=== PATIENT | male | born 1940 | race Caucasian/White ===

== ENCOUNTER → 2025-02-14 07:48 | Outpatient (BNVA) | payer MEDICARE, OTHER, SELFPAY | PROVIDERS: Family Provider Family Medicine; Visit Provider Dermatology | DX: S50.912A Unspecified superficial injury of left forearm, initial encounter (principal); L57.8 Other skin changes due to chronic exposure to nonionizing radiation; L82.1 Other seborrheic keratosis; L81.4 Other melanin hyperpigmentation; D69.2 Other nonthrombocytopenic purpura; L57.0 Actinic keratosis; D48.5 Neoplasm of uncertain behavior of skin | CPT/HCPCS: 11102; 17004; 99203 ==

== ENCOUNTER → 2025-03-07 12:51 | Outpatient (BNVA) | payer MEDICARE, OTHER, SELFPAY | PROVIDERS: Family Provider Family Medicine; Visit Provider Dermatology | DX: C44.319 Basal cell carcinoma of skin of other parts of face (principal) | CPT/HCPCS: 12052; 17311 ==

== ENCOUNTER → 2025-03-14 14:47 | Outpatient (BNVA) | payer MEDICARE, OTHER, SELFPAY | PROVIDERS: Family Provider Family Medicine; Visit Provider Dermatology | DX: L81.4 Other melanin hyperpigmentation (principal); L57.0 Actinic keratosis | CPT/HCPCS: 17000; 99212 ==

== ENCOUNTER 2025-05-03 18:54 | Inpatient (IN) | payer MEDICARE, OTHER, SELFPAY ==
[2025-05-03] VITALS (7 sets, daily range): BP systolic 104–134; BP diastolic 56–65; PULSE 91–99; RESP 15–16; TEMP 36.5–37.5; O2SAT 95–99; BMI 28.3
--- OUTSIDE RECORDS SUMMARY | 2025-05-03 19:00 | XMS_ITS | Encounter Summary ---
Author Organization [facility] Address [address] [place] [address] Care Team Providers Care Locomotive Firer/Fireman Name Role Phone Mel Be DO Primary Care Provider [phone] Encounter Details Date Type Department Care Team (Late st Contact Info) Description 03/26/2025 Results Follow-Up [facility] Family Medicine [place] [address] [place] [address] Mel Be DO [address] [place] [address] TSH Social History Tobacco Use Types Packs/Day Years Used Date Smoking Tobacco: Former Cigarettes Q uit: 07/13/2005 Smokeless Tobacco: Never Comments:Quit smoking: inter mittent - not since 06/04, 5 years total in life Alcohol Use Standard Drinks/Week Comments No 0 (1 standard drink = 0.6 oz pur e alcohol) Financial Resource Strain Answer Date R ecorded How hard is it for you to pa y for the very basics like food, housing, medical care, and heating? Not hard at all 12/17/2021 Food Insecurity Answer Date Recorded In the past 12 months, have you worried that your food would run out before you had money to buy more? Never true 12/17/2021 In the past 12 months, did y ou run out of food and didn't have money to buy more? Never true 12/17/2021 Transportation Needs Answer Date Record ed In the past 12 months, has l ack of transportation kept you from medical appointments or from getting medications? 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 Gender Identity Not on file Sexual Orientation Not on file documented as of this encounter Plan of Treatment Upcoming Encounters Date Type Department Care Team (Late st Contact Info) Description 01/17/2026 9:20 AM CDT Office Visit [facility] Medicine [place] [address] [place] [phone] Mel Be DO [address] [place] [facility] [place] [id number] documented as of this encounter Visit Diagnoses Not on filedocumented in this encounter Care Teams Locomotive Firer/Fireman Relationship Specialty Start Date End Date Mel Be DO [address] [place] [facility] [place] [address] PCP - General 09/06/20 documented as of this encounter
--- OUTSIDE RECORDS SUMMARY | 2025-05-03 19:00 | XMS_ITS | Clinical Summary ---
Author Organization [facility] Address [address] [place] [address] Care Team Providers Care Residential Worker Name Role Phone Mel Be Fred SAUER Primary Care Provider Allergies No known active allergies Medications blood sugar diagnostic Strip Test daily as needed freedom style lite DX 250.00. 100 Each 4 08/16/19 19 Active cyanocobalamin (VITAMIN B-12) 500 mcg tablet Take 500 mcg by mouth daily. 05/18/20 17 Active Cholecalciferol, Vitamin D3, 50 mcg (2,000 unit) Capsule Take 1 Capsule by mouth daily. 05/18/20 17 Active vitamin E 400 unit capsule Take 400 Units by mouth daily. 05/18/20 17 Active Blood-Glucose Meter Kit Test daily as needed free style freedom lite DX 250.00. 1 Kit 6 02/29/20 15 Active ascorbic acid, vitamin C, (VITAMIN C) 1,000 mg Tablet Take 1,000 mg by mouth daily. Active aspirin (ANTHONY) 325 mg tablet Take 325 mg by mouth daily. Active ubidecarenone (COQ-10 ORAL) Take by mouth. A ctive sildenafiL (VIAGRA) 100 mg tablet Take 1 Tablet (100 mg) by mouth 1 time daily as needed for Erectile Dysfunction. 30 Tablet 02/02/20 23 Active Cinnamon Bark 500 mg Capsule Take 500 mg by mouth daily. Active levothyroxine 25 mcg tablet Take 1 Tablet (25 mcg) by mouth daily in the morning. 90 Tablet 01/05/20 25 Active amLODIPine (NORVASC) 10 mg tabletIndications: Essential hypertension Take 1 Tablet (10 mg) by mouth daily. *NEEDS APPOINTMENT FOR MORE REFILLS* 90 Tablet 01/13/20 25 Active atorvastatin (LIPITOR) 40 mg tabletIndications: Mixed hyperlipidemia Take 1 Tablet (40 mg) by mouth daily. 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 100 Tablet 01/13/20 25 Active empaglifloz-linagl ip-metformin (Trijardy XR) 25-5-1,000 mg tablet, IR & ER, biphasic 24hrIndications:Ty pe 2 diabetes mellitus without complication, without long-term current use of insulin ([facility]) Take 1 Tablet by mouth daily. 90 Tablet 01/13/20 25 Active fenofibrate (LOFIBRA) 160 mg TabletIndications: Mixed hyperlipidemia Take 1 Tablet (160 mg) by mouth daily. 90 Tablet 01/13/20 25 Active losartan (COZAAR) 100 mg tabletIndications: Essential hypertension Take 1 Tablet (100 mg) by mouth daily. 90 Tablet 01/13/20 25 Active metoprolol succinate (TOPROL XL) 100 mg Extended Release 24 hour tablet Take 1 Tablet (100 mg) by mouth daily. 90 Tablet 01/13/20 25 Active traMADol (ULTRAM) 50 mg tabletIndications: Primary osteoarthritis involving multiple joints Take 1-2 Tablets (50-100 mg) by mouth 3 times daily as needed for Pain. 180 Tablet 01/13/20 25 Active triamterene-hydroC HLOROthiazide (DYAZIDE) 37.5-25 mg capsuleIndications :Essential hypertension Take 1 Capsule by mouth daily. 90 Capsule 4 01/13/20 Active Active Problems Problem Noted Date Diagnosed Date Other male erectile dysfunction 02/11/2023 Primary osteoarthritis involving multiple joints 09/19/2020 Type 2 diabetes mellitus wit hout complication, without long-term current use of insulin 01/10/2014 Essential hypertension 06/08/2008 Hypertrophy of prostate with urinary obstruction and other lower urinary tract symptoms (LUTS) 06/08/2008 Coronary artery disease invo lving kaw coronary artery of kaw heart without angina pectoris 06/08/2008 Mixed hyperlipidemia 06/08/2008 Resolved Problems Problem Noted Date Diagnosed Date Resolved Date Acute cholecystitis due to biliary calculus 07/09/2018 07/22/2018 NIDDM (non-insulin dependent diabetes mellitus) 06/08/2008 01/10/2014 Encounters Date Type Department Care Team Description 04/19/2025 External Device Data STL ABSTRACTION Provider, Abstract 03/26/2025 Results Follow-Up [facility] [address] [place] [address] Mel Be DO TSH 03/23/2025 Orders Only [facility] [address] [place] [address] Mel Be DO Acquired hypothyroidism; Type 2 diabetes mellitus without complication, without long-term current use of insulin 03/07/2025 Orders Only [facility] [place] [address] [place] [address] Provider, Abstract 02/14/2025 External Device Data STL ABSTRACTION Provider, Abstract 01/31/2025 Telephone [facility] [address] [place] [address] Mel Be DO Needs Orders Written 01/31/2025 Telephone [facility] [address] [place] [address] Mel Be DO Patient Communication; Erroneous encounter-disregard from Last 3 Months Immunizations Immunization Administration Dates Next Due (PFIZER)(12 YR UP) COVID-19 VACCINE - EMERGENCY USE AUTHORIZATION, MRNA, [id number](PF) 30 MCG/0.3 ML IM SUSP 08/24/2020,07/27/2020 (PREVNAR 13)(6 WKS UP) PNEUM OCOCCAL CONJUGATE (PCV13) 0.5 ML, IM 03/29/2011 (SPIKEVAX) (12 YRS UP PRIMAR Y SERIES) COVID-19 VACCINE - MRNA-[id number](PF) 100 MCG/0.5 ML IM SUSP 03/13/2022 INFLUENZA VACCINE QUADRIVALE NT 6 MOS UP PF IM 04/07/2014 INFLUENZA VACCINE QUADRIVALE NT ADJ 65 YR UP PF IM 03/21/2020 Influenza Seasonal Unspecifi ed Formulation IM 03/12/2022,03/29/2011,04/20/2009 Pneumococcal 13-heidi Conj Vac c Patient Supplied 03/21/2020 Social History Tobacco Use Types Packs/Day Years [...] on file 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 Gender Identity Not on file Sexual Orientation Not on file Last Filed Vital Signs Vital Sign Reading Time Taken Comments Blood Pressure 136/62 01/12/2025 1:08 PM CDT Pulse 83 01/12/2025 1:08 PM CDT Temperature 36.9 C (98.5 F) 01/12/2025 1:08 PM CDT Respiratory Rate 18 01/12/2025 1:08 PM CDT Oxygen Saturation 95% 01/12/2025 1:08 PM CDT Inhaled Oxygen Concentration - - Weight 90 kg (198 lb 6.4 oz) 01/12/2025 1:08 PM CDT Height 175.3 cm (5' 9 ) 01/12/2025 1:08 PM CDT Body Mass Index 29.3 01/12/2025 1:08 PM CDT Plan of Treatment Upcoming Encounters Date Type Department Care Team (Late st Contact Info) Description 01/17/2026 9:20 AM CDT Office Visit [facility] Medicine [place] [address] [place] [address] Mel Be, [address] [place] [address] Health Maintenance Due Date Last Done Comments DTAP/TDAP/TD VACCINES (1 - Tdap) 1961 ZOSTER VACCINE (1 of 2) 1992 DIABETES ANNUAL FOOT EXAM 02/12/2013 02/13/2012 RSV VACCINE (60+ or ) (1 - 1-dose 75+ series) 2017 INFLUENZA VACCINE (#1) 2025 4, 04/12/2023, 03/12/2022, Additional history exists COVID-19 Vaccine ( - 2023-2 5 season) 2025 05/12/2024, 03/13/2022, 03/26/2021, Additional history exists DIABETES HBA1C Q 6 MONTHS 07/06/20252024, 01/08/2024, 12/23/2022, Additional history exists DIABETES: A1C (Auto Order) 01/03/202601/03, 01/08/2024, 12/23/2022, Additional history exists LDL CHOLESTEROL ANNUAL 01/03/2026 5, 01/08/2024, 12/23/2022, Additional history exists Traditional Medicare (ACO) A nnual Wellness Visit 01/13/2026 01/12/2025, 12/24/2023, 12/23/2022 DIABETES ANNUAL RETINAL EXAM 02/20/2026, 12/17/2021, 05/03/2020, Additional history exists DIABETES MICROALBUMIN ANNUAL SCREEN 03/23/2026 03/23/2025, 12/17/2021, 09/11/2020 COLORECTAL SCREENING Discontinued 03/03/2003 Colorectal Cancer Screening Discontinued PNEUMOCOCCAL VACCINE 50+ YEARS Completed 0 03/07/2025, 03/21/2020, 03/29/2011 FIT-DNA Q 3 years Discontinued FIT/FOBT Q 1 year Discontinued Flex Sig/CT Colonography Q 5 years Discontinued Procedures Procedure Name Priority Date/Time Associated Diagnosis Comments MICROALBUMIN/CREATI NINE RATIO, RANDOM UR Routine 03/23/2025 9:59 AM CDT Type 2 diabetes mellitus without complication, without long-term current use of insulin TSH Routine 03/23/2025 9:59 AM CDT Acquired hypothyroidism HM DIABETES EYE EXAM Routine 02/20/2025 8:16 AM CDT LIPID PANEL Routine 01/03/2025 8:52 AM CDT Primary osteoarthritis involving multiple joints Essential hypertension Mixed hyperlipidemia Type 2 diabetes mellitus without complication, without long-term current use of insulin ([facility]) Abnormal TSH HEMOGLOBIN A1C Routine 01/03/2025 8:52 AM CDT Primary osteoarthritis involving multiple joints Essential hypertension Mixed hyperlipidemia Type 2 diabetes mellitus without complication, without long-term current use of insulin ([facility]) Abnormal TSH from Last 3 Months or Most Recently Relevant to Health Maintenance Results * MICROALBUMIN/CREATININE RATIO, RANDOM UR (03/23/2025 9:59 AM CDT) CREATININE, URINE 54 20 - 320 mg/dL [facility] ALBUMIN, URINE 0.4 See Note: mg/dL [facility] Comment: Reference Range: Reference Range Not established ALB/CREAT RATIO, URINE 7 <30 mg/g creat [facility] Comment: The ADA defines abnormalities in albumin excretion as follows: Albuminuria Category Result (mg/g creatinine) Normal to Mildly increased <30 Moderately increased 30-299 Severely increased > OR = 300 The ADA recommends that at least two of three specimens collected within a 3-6 month period be abnormal before considering a patient to be within a diagnostic category. Test Performed at: [facility] [address] [facility] [place] [address] Pascale Cardona MD Urine URINE SPECIMEN OBTAINED BY CLEAN CATCH PROCEDURE / Unknown 03/23/2025 9:59 AM CDT 03/24/2025 4:06 AM CDT Mel Be DO URINE ORDERABLES Final Resu lt [facility] [phone] [facility] [address] [place] [address] [place] [address] * TSH (03/23/2025 9:59 AM CDT) TSH 4.49 0.40 - 4.50 mIU/L [facility] Comment: Test Performed at: [facility] [address] [facility] [place] [address] Pascale Cardona MD Blood 03/23/2025 9:59 AM CDT 03/24/2025 6:22 AM CDT Mel Be DO CHEMISTRY ORDERABLES Final Result [facility] [phone] [facility] [address] [place] [address] [place] [address] * (ABNORMAL) DIABETES EYE EXAM (02/20/2025 8:16 AM CDT) us Abstract Provider HEALTH MAINTENANCE Edited Resu lt - Final * (ABNORMAL) HEMOGLOBIN A1C (01/03/2025 8:52 AM CDT) HEMOGLOBIN A1C 7.9(H) <5.7 % [facility] Comment: For someone without known diabetes, a hemoglobin A1c value of 6.5% or greater indicates that they may have diabetes and this should be confirmed with a follow-up test. For someone with known diabetes, a value <7% indicates that their diabetes is well controlled and a value greater than or equal to 7% indicates suboptimal control. A1c targets should be individualized based on duration of diabetes, age, comorbid conditions, and other considerations. Currently, no consensus exists regarding use of hemoglobin A1c for diagnosis of diabetes for children. ESTIMATED AVERAGE GLUCOSE (MG/DL) 180 mg/dL [facility] ESTIMATED AVERAGE GLUCOSE (MMOL/L) 10.0 mmol/L [facility] Comment: Test Performed at: [facility] [address] [place] [address] Pascale Cardona MD Blood 01/03/2025 8:52 AM CDT 01/04/2025 3:30 AM CDT us Mel Be DO CHEMISTRY ORDERABLES Final Result [facility] [phone] [facility] [address] [place] [address] * (ABNORMAL) LIPID PANEL (01/03/2025 8:52 AM CDT) Pathologist [facility] CHOLESTEROL 154 <200 mg/dL [facility] HDL 45 > OR = 40 mg/dL [facility] TRIGLYCERIDE 164(H) <150 mg/dL [facility] LDL CALCULATED 83 mg/dL (calc) [facility] Comment: Reference range: <100 Desirable range <100 mg/dL for primary prevention; <70 mg/dL for patients with CHD or diabetic patients with > or = 2 CHD risk factors. LDL-C is now calculated using the Gardenia calculation, which is a validated novel method providing better accuracy than the Friedewald equation in the estimation of LDL-C. Carlos ELMORE et al. NABIL. 2013;310(19): 7239-0075 (http://education.[employer]/faq/SVX822) CHOL/HDL RATIO 3.4 <5.0 (calc) [facility] NON-HDL CHOLESTEROL 109 <130 mg/dL (calc) [facility] Comment: For patients with diabetes plus 1 major ASCVD risk factor, treating to a non-HDL-C goal of <100 mg/dL (LDL-C of <70 mg/dL) is considered a therapeutic option. Test Performed at: [facility] [address] [facility] [place] [address] Pascale Cardona MD Blood 01/03/2025 8:52 AM CDT 01/04/2025 3:30 AM CDT Mel Be DO CHEMISTRY ORDERABLES Final Result [facility] [phone] [facility] [address] [facility] [place] [address] from Last 3 Months or Most Recently Relevant to Health Maintenance Insurance MEDICARE PART A AND B [facility] * Guarantor: RONNIE SHELL JR. Account Type Relation to Patient Date of Phone Billing Address Personal/Family [address] [place] [address] [facility] Medicare Part D Care Teams Residential Worker Relationship Specialty Start Date End Date Mel Be DO [address] [place] [phone] PCP - General 09/06/20
--- OUTSIDE RECORDS SUMMARY | 2025-05-03 19:00 | XMS_ITS | Clinical Summary ---
Author Organization [facility] Address [address] [place] [address] Care Team Providers Care Principal Technical Writer Name Role Phone Mel Be Primary Care Provider [phone] Allergies No known active allergies Medications ASPIRIN 325 mg Oral Tab Take 325 mg by mouth daily. Active CENTRUM SILVER PO Take by mouth daily. Active VITAMIN C WITH AYESHA HIPS 1,000 mg Oral Tab Take 1,000 mg by mouth daily. Active Blood-Glucose Meter (FREESTYLE FREEDOM LITE) Kit Test daily as needed free style freedom lite DX 250.00. 1 Kit 6 5 Active Cholecalciferol, Vitamin D3, 2,000 unit Capsule Take 1 Capsule by mouth daily. Active cyanocobalamin (VITAMIN B-12) 500 mcg tablet Take 500 mcg by mouth daily. Active vitamin E 400 unit capsule Take 400 Units by mouth daily. Active blood sugar diagnostic (BLOOD GLUCOSE TEST) Strip Test daily as needed freedom style lite DX 250.00. 100 Each 4 9 Active traMADoL (ULTRAM) 50 mg tabletIndications:P rimary osteoarthritis involving multiple joints Take 1-2 Tablets (50-100 mg) by mouth every 6 hours as needed for Pain. Take 1 to 2 tabs every 6 hours prn pain. 180 Tablet 4 1 Active fenofibrate (LOFIBRA) 160 mg TabletIndications:M ixed hyperlipidemia TAKE 1 TABLET DAILY 90 Tablet 4 1 Active amLODIPine (NORVASC) 10 mg tabletIndications:E ssential hypertension TAKE 1 TABLET DAILY 90 Tablet 4 1 Active empaglifloz-linagli p-metformin (Trijardy XR) 25-5-1,000 mg tablet, IR & ER, biphasic 24hr Take 1 Tablet by mouth daily. 90 Tablet 4 1 Active clopidogreL (PLAVIX) 75 mg TabletIndications:C oronary artery disease involving [place] coronary artery of [place] heart without angina pectoris TAKE 1 TABLET DAILY 90 Tablet 4 1 Active triamterene-hydroCH LOROthiazide (DYAZIDE) 37.5-25 mg capsuleIndications: Essential hypertension TAKE 1 CAPSULE DAILY 90 Capsule 4 1 Active simvastatin (ZOCOR) 40 mg tabletIndications:M ixed hyperlipidemia TAKE 1 TABLET DAILY 90 Tablet 4 1 Active losartan (COZAAR) 100 mg tabletIndications:E ssential hypertension TAKE 1 TABLET DAILY 90 Tablet 4 1 Active metoprolol succinate (TOPROL XL) 200 mg Extended Release 24 hour tabletIndications:C oronary artery disease involving [place] coronary artery of [place] heart without angina pectoris TAKE 1/2 TABLET DAILY 45 Tablet 4 1 Active Active Problems Problem Noted Date Diagnosed Date Primary osteoarthritis involving multiple joints 09/19/2020 Type 2 diabetes mellitus wit hout complication, without long-term current use of insulin 01/10/2014 Essential hypertension 06/08/2008 Coronary artery disease invo lving [place] coronary artery of [place] heart without angina pectoris 06/08/2008 Mixed hyperlipidemia 06/08/2008 Hypertrophy of prostate with urinary obstruction and other lower urinary tract symptoms (LUTS) 06/08/2008 Resolved Problems Problem Noted Date Diagnosed Date Resolved Date Acute cholecystitis due to biliary calculus 07/09/2018 07/22/2018 NIDDM (non-insulin dependent diabetes mellitus) 06/08/2008 01/10/2014 Immunizations Immunization Administration Dates Next Due ([employer])(12 YR UP) COVID-19 VACCINE - EMERGENCY USE AUTHORIZATION, MRNA, [id number](PF) 30 MCG/0.3 ML IM SUSP 08/24/2020,07/27/2020 (PREVNAR 13)(6 WKS UP) PNEUM OCOCCAL CONJUGATE (PCV13) 0.5 ML, IM 03/29/2011 INFLUENZA VACCINE QUADRIVALENT 6 MOS UP PF IM INFLUENZA VACCINE QUADRIVALENT ADJ 65 YR UP PF I M 03/21/2020 Influenza Seasonal Unspecified Formulation IM ,04/20/2009 Pneumococcal 13-heidi Conj Vacc Patient Supplied 0 03/21/2020 Social History Tobacco Use Types Packs/Day Years Used Date Smoking Tobacco: Former Cigarettes Q uit: 07/13/2005 Smokeless Tobacco: Never Comments:intermittent - not since 06/04, 5 years total in life Alcohol Use Standard Drinks/Week Comments No 0 (1 standard drink = 0.6 oz pur e alcohol) Sex and Gender Information Value Date Recorded Sex Assigned at Not on file 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 Gender Identity Not on file Sexual Orientation Not on file Last Filed Vital Signs Vital Sign Reading Time Taken Comments Blood Pressure 130/76 09/11/2020 9:24 AM CDT Pulse 89 09/11/2020 9:20 AM CDT Temperature 36.1 C (96.9 F) 09/11/2020 9:20 AM CDT Respiratory Rate 18 09/11/2020 9:20 AM CDT Oxygen Saturation 98% 09/11/2020 9:20 AM CDT Inhaled Oxygen Concentration - - Weight 90.3 kg (199 lb) 09/11/2020 9:20 AM CDT Height 175.3 cm (5' 9 ) 09/11/2020 9:20 AM CDT Body Mass Index 29.39 09/11/2020 9:20 AM CDT Plan of Treatment Health Maintenance Due Date Last Done Comments DTAP/TDAP/TD VACCINES (1 - Tdap) 1961 ZOSTER VACCINE (1 of 2) 1992 DIABETES ANNUAL FOOT EXAM 02/12/2013 02/13/2012, RSV VACCINE (60+ or ) (1 - 1-dose 75+ series) 2017 PNEUMOCOCCAL VACCINE 50+ YEA RS (2 of 2 - PPSV23, PCV20, or PCV21) 05/16/2020 03/21/2020, 03/29/2011 DIABETES HBA1C Q 6 MONTHS 03/14/20212020, 03/03/2019, 07/09/2018, Additional history exists DIABETES MICROALBUMIN ANNUAL SCREEN 09/11/2021 09/11/2020, 02/13/2012, 09/10/2009, Additional history exists LDL CHOLESTEROL ANNUAL 09/11/2021 , 03/03/2019, 07/09/2018, Additional history exists Traditional Medicare (ACO) A nnual Wellness Visit 09/12/2021 09/11/2020, 07/05/2019 INFLUENZA VACCINE (#1) 2025 0, 04/07/2014, 03/29/2011, Additional history exists COVID-19 Vaccine (3 - 2024-2 6 season) 2025 08/24/2020, 07/27/2020 DIABETES ANNUAL RETINAL EXAM 02/20/2026, 05/03/2020, 08/25/2017, Additional history exists COLORECTAL SCREENING Discontinued 03/03/2003 Colorectal Cancer Screening Discontinued FIT-DNA Q 3 years Discontinued FIT/FOBT Q 1 year Discontinued Flex Sig/CT Colonography Q 5 years Discontinued Procedures Procedure Name Priority Date/Time Associated Diagnosis Comments MICROALBUMIN/CREATIN INE RATIO, RANDOM UR Routine 09/11/2020 10:16 AM CDT Type 2 diabetes mellitus without complication, without long-term current use of insulin ([facility]) LIPID PANEL Routine 09/11/2020 10:16 AM CDT Type 2 diabetes mellitus without complication, without long-term current use of insulin ([facility]) HEMOGLOBIN A1C Routine 09/11/2020 10:16 AM CDT Type 2 diabetes mellitus without complication, without long-term current use of insulin ([facility]) HM DIABETES EYE EXAM Routine 05/03/2020 ENDOSCOPY, COLON, DIAGNOSTIC Routine 03/03/2003 from Last 3 Months or Most Recently Relevant to Health Maintenance Results * MICROALBUMIN/CREATININE RATIO, RANDOM UR (09/11/2020 10:16 AM CDT) MICROALBUMIN, URINE <1.2 No Reference Range mg/dL 09/11/2020 10:[address] [facility] CREATININE, URINE 131.8 40.0 - 278.0 mg/dL 09/11/2020 10:[address] [facility] Comment:Reference Range vari es with fluid intake and diet. MICROALBUMIN/C REAT RATIO, UR <9.1 <17.0 mg/g 09/11/2020 10:[address] [facility] Urine URINE SPECIMEN OBTAINED BY CLEAN CATCH PROCEDURE / Unknown Collection / Unknown 09/11/2020 10:16 AM CDT 09/11/2020 8:[address] [facility] - 09/11/2020 10:02 PM CDT Condition Microalbumin/Creat ratio Normal Males <17 Normal Females <25 Microalbuminuria Males 17-299 Microalbuminuria Females 25-299 Overt proteinuria >=300 us Mel Be DO URINE ORDERABLES Final Resu lt [facility] CLIA# [id number] [address] [place] [address] * (ABNORMAL) HEMOGLOBIN A1C (09/11/2020 10:16 AM CDT) HEMOGLOBIN A1C 12.0(H) See Comment % 09/11/2020 8:[address] [facility] EST. AVG GLUCOSE, A1C 298 mg/dL 09/11/2020 8:[address] [facility] Blood Venipuncture / Unknown 09/11/2020 10:16 AM CDT 09/11/2020 8:21 PM CDT [facility] - 09/11/2020 8:50 PM CDT HGB A1C INTERPRETATION NORMAL: <5.7% PRE-DIABETES: 5.7 - 6.4% DIABETES: 6.5% OR GREATER Falsely low A1C measurements can occur when: 1. Anemia and/or hemolytic anemia is present. 2. Hemoglobin variants present. 3. Renal failure. 4. Transfusion of blood product in the last 120 days. We recommend ordering a fructosamine test([id number]) to more accurately assess glycemic status if any of the above conditions are present. Mel Be DO CHEMISTRY ORDERABLES Final Result [facility] CLIA# [id number] [address] [place] [address] * (ABNORMAL) LIPID PANEL (09/11/2020 10:16 AM CDT) CHOLESTEROL 189 <200 mg/dL 09/11/2020 9:[address] [facility] TRIGLYCERIDE 329(H) <150 mg/dL 09/11/2020 9:[address] [facility] HDL 38(L) 40 - 59 mg/dL 09/11/2020 9:[address] [facility] LDL CALCULATED 85 <100 mg/dL 09/11/2020 9:[address] [facility] NON-HDL CHOLESTEROL 151(H) <130 mg/dL 09/11/2020 9:[address] [facility] Blood Venipuncture / Unknown 09/11/2020 10:16 AM CDT 09/11/2020 8:22 PM CDT [facility] - 09/11/2020 9:54 PM CDT TOTAL CHOLESTEROL mg/dL Desirable <200 Borderline high 200-239 High >=240 TRIGLYCERIDES mg/dL Normal <150 Borderline high 150-199 High 200-499 Very high >=500 HDL CHOLESTEROL mg/dL Low <40 Normal 40-59 Desirable >=60 NON HDL CHOLESTEROL mg/dL Optimal <130 Near Optimal 130-159 Borderline High 160-189 Very High >=190 CALCULATED LDL mg/dL LDL <70, OPTIMAL if have Atherosclerotic cardiovascular disease (ASCVD) or intermediate or higher (>7.5%) 10 year risk of ASCVD including most adults with diabetes. LDL <100, Optimal in adult patients with low (<7.5%) 10 year ASCVD risk LDL 100-160, Suboptimal LDL >160, High LDL >190, Very high ATPIII Guidelines Reference Ranges for Lipid Panels (NCEP/AMA) . us Mel Be DO CHEMISTRY ORDERABLES Final Result [facility] CLIA# [id number] [place] [address] * DIABETES EYE EXAM (05/03/2020) us Abstract Spg Provider HEALTH MAINTENANCE Final R esult * ENDOSCOPY, COLON, DIAGNOSTIC (03/03/2003) us Abstract Spg Provider GI PROCEDURE ORDERABLES Fi nal Result from Last 3 Months or Most Recently Relevant to Health Maintenance Insurance [facility] SUPP MEDICARE PART A AND B [employer]IG[employer] MCR SUPP RX [facility] Medicare Part D Advance Directives For more information, please contact: [phone] * Full Code (Latest Code Status on File) Date Activated Date Inactivated Comments 07/09/2018 11:42 PM 07/11/2018 3:00 PM Care Teams Principal Technical Writer Relationship Specialty Start Date End Date Mel Be DO [address] [place] [address] PCP - General 12/04/08
--- NOTE | 2025-05-03 19:17 | XRR_ITS ---
PROCEDURE INFORMATION: Exam: XR Chest Exam date and time: 05/03/2025 7:31 PM Age: 84 years old Clinical indication: Other: Weakness TECHNIQUE: Imaging protocol: Radiologic exam of the chest. Views: 1 view. COMPARISON: No relevant prior studies available. FINDINGS: Lungs: Unremarkable. No consolidation. Pleural spaces: Unremarkable. No pleural effusion. No pneumothorax. Heart/Mediastinum: Unremarkable. No cardiomegaly. Bones/joints: Unremarkable. XR/XR chest 1V portable [id number] IMPRESSION: No acute findings.
--- NOTE | 2025-05-03 19:27 | ECG_ITS ---
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 [email or web address]
--- NOTE | 2025-05-03 19:50 | CTR_ITS ---
PROCEDURE INFORMATION: Exam: CT Chest With Contrast; Diagnostic Exam date and time: 05/03/2025 8:39 PM Age: 84 years old Clinical indication: Other: SOB, vomiting, coffee grounds TECHNIQUE: Imaging protocol: Diagnostic computed tomography of the chest with contrast. Radiation optimization: All CT scans at this facility use at least one of these dose optimization techniques: automated exposure control; mA and/or kV adjustment per patient size (includes targeted exams where dose is matched to clinical indication); or iterative reconstruction. Contrast material: [id number]; Contrast volume: 100 ml; Contrast route: INTRAVENOUS (IV); COMPARISON: CR (CHEST, ) 05/03/2025 7:31 PM RADIATION DOSE METRICS: Total DLP (mGy-cm): 1177.89 FINDINGS: Lungs: There is no consolidation. 4 mm left lower lobe noncalcified pulmonary nodule present. Calcified granuloma present right upper lobe. Pleural spaces: There are no findings present to suggest significant pleural effusion Heart: Mitral annular calcifications demonstrated Lymph nodes: Unremarkable. No enlarged lymph nodes. Vasculature: Unremarkable. No aortic aneurysm. Bones/joints: Unremarkable. No acute fracture. Soft tissues: Unremarkable. guidelines below statement: For patients at low risk (minimal or absent history of smoking and of other known risk factors), no routine follow-up is indicated. For patients at high risk (history of smoking or of other known risk factors), consider optional CT Chest at 12 months. (Reference: Falguni) References: Falguni Wong et al. Guidelines for Management of Incidental Pulmonary Nodules Detected on CT Images: From the Fleischner Society 2017. Radiology. 2017;284(1):228-243. PROCEDURE INFORMATION: Exam: CT Abdomen And Pelvis With Contrast Exam date and time: 05/03/2025 8:39 PM Age: 84 years old Clinical indication: Other: SOB, vomiting, coffee grounds TECHNIQUE: Imaging protocol: Computed tomography of the abdomen and pelvis with contrast. Radiation optimization: All CT scans at this facility use at least one of these dose optimization techniques: automated exposure control; mA and/or kV adjustment per patient size (includes targeted exams where dose is matched to clinical indication); or iterative reconstruction. Contrast material: [id number]; Contrast volume: 100 ml; Contrast route: INTRAVENOUS (IV); COMPARISON: CR (CHEST, ) 05/03/2025 7:31 PM RADIATION DOSE METRICS: Total DLP (mGy-cm): 1177.89 FINDINGS: Liver: Unremarkable. No mass. Gallbladder and biliary ducts: Unremarkable. No calcified stones. No ductal dilation. Pancreas: Unremarkable. No ductal dilation. Spleen: Unremarkable. No splenomegaly. Adrenal glands: Normal. No mass. Kidneys and ureters: Unremarkable. No hydronephrosis. Stomach and bowel: Bowel demonstrate no obstruction. There is decompressed thickened colon correlates with slow colitis Appendix: Appendix normal Intraperitoneal space: Unremarkable. No free air. No significant fluid collection. Vasculature: Unremarkable. No abdominal aortic aneurysm. Lymph nodes: Unremarkable. No enlarged lymph nodes. Urinary bladder: Unremarkable as visualized. Reproductive: Unremarkable as visualized. Bones/joints: Unremarkable. No acute fracture. Soft tissues: Unremarkable. CT/CT chest abdpel w/*[id number] IMPRESSION: No acute cardiopulmonary process demonstrated Findings of left lower lobe 4 mm noncalcified pulmonary nodule for follow-up IMPRESSION: Decompressed thickened colon correlate to exclude colitis no obstruction
[2025-05-03 19:55] LABS: Hematocrit 30.6 % (37-53); Hemoglobin 9.90 g/dL (11.27-16.99); Mean Corpuscular HGB Conc 32.4 g/dL (30-55); Mean Corpuscular Hemoglobin 28.9 pg (27-33); Mean Corpuscular Volume 89.5 fl (82-101); Nucleated Red Blood Cells % 0 %; Platelet Count 211 10^3/cmm (157-399); Red Blood Count 3.42 10^6/uL (3.85-5.65); White Blood Count 12.29 10^3/uL (3.29-11.43)
[2025-05-03 20:07] LABS: INR 1.18 (0.8-1.2); Partial Thromboplastin Time 21.3 SECONDS (23.9-36.7); Prothrombin Time 15.80 SECONDS (12.1-14.9)
--- NOTE | 2025-05-03 20:10 | ED_ITS ---
Documented by User: RANJIT Connell 05/03/25 21:20 HPI - SOB/Dyspnea 2 General: Chief Complaint: Shortness of Breath/Dyspnea Stated Complaint: SOB, GI Issues Time Seen by Provider: 05/03/25 19:34 Source: patient Mode of arrival: EMS Limitations: no limitations History of Present Illness: HPI Narrative: Patient is an 84-year-old male who presents to the emergency department by EMS complaining of shortness of breath and vomiting beginning today. He states that this morning he was walking in his kitchen when he had the sensation that he was going to pass out, also notes sudden onset of shortness of breath. States he has never had this happen before in the past, he has not had any chest pain today. He did not actually pass out or have any injuries, but does note that at 1 point today he had abdominal pain and fullness and had multiple episodes of coffee-ground emesis. States that throwing up made all of his symptoms go away, currently at this time is symptom-free and asking to go home. No changes in bowel habits. No history of GI bleeds, no history of bowel obstruction. No bright red blood in his emesis. No coughing. He is not reporting any lightheadedness or dizziness, palpitations, or headache. At this time his vitals are stable, he is nontoxic-appearing. MD elicited complaint: shortness of breath and anxiety (Coffee-ground emesis) Onset (ago): hour(s) Timing: now resolved Associated symptoms: Reports abdominal pain and vomiting; Deny chest pain, fever(s), lightheadedness, nausea or palpitations Related Data Allergies Allergy/AdvReac Type Severity Reaction Status Date / Time No Known Allergies Allergy Verified 05/03/25 19:05 Review of Systems 2 General: Reports: 10 or more systems reviewed and unremarkable except in HPI and below Const: Denies: fever(s), chills or fatigue Eyes: Denies: change in vision ENMT: Denies: throat pain, ear or mastoid pain or nasal discharge Card: Reports: pre-syncope; Denies: chest pain, palpitations, swelling of feet/ankles or lightheadedness Resp: Reports: dyspnea; Denies: productive cough or wheezing GI: Reports: abdominal pain, vomiting, coffee ground emesis and bloating; Denies: nausea, diarrhea or constipation : Denies: flank pain, difficulty urinating, dysuria or urinary frequency Musc: Denies: neck pain, back pain or joint pain Skin/Breast: Denies: rash Neuro: Denies: headache(s), numbness in extremities or weakness in extremities PFSH ED 2 PFSH: Social History Smoking and tobacco/nicotine status: former use of tobacco/nicotine Physical Exam 2 Const: COMMON NORMALS: no acute distress, average body habitus, patient oriented x3, no limitations, healthy appearing, alert and well nourished G ENERAL APPEARANCE: cooperative and comfortable ORIENTATION/CONSCIOUSNESS: Yes awake Neck/C-Spine: COMMON NORMALS: full ROM, supple and no meningeal signs Resp: COMMON NORMALS: normal respiratory effort, No retractions, No use of accessory muscles and clear to auscultation bilaterally AUSCULTATION: clear to auscultation bilaterally, no crackles, no rales, no rhonchi and no wheezes Cardio: COMMON NORMALS: regular rate, regular rhythm, No gallops present (Cardio), No clicks present (Cardio), No murmurs present (Cardio) and No rub (Cardio) RATE: regular rate RHYTHM: regular rhythm GI: COMMON NORMALS: Normal to inspection, nondistended, normoactive bowel sounds present, Soft to palpation, non-tender, No hepatosplenomegaly present and no masses AUSCULTATION: Yes normoactive bowel sounds PALPATION: Yes Soft to palpation, No Guarding due to palpation present (GI), No Rigid due to palpation and Yes No hepatosplenomegaly present RECTAL EXAM: Yes deferred Extremity: COMMON NORMALS: normal to inspection and full ROM Neuro: COMMON NORMALS: patient oriented x3, moves all extremities, no focal motor deficits and no sensory deficits noted SENSORIUM/ORIENTATION: Yes alert MENINGEAL SIGNS: Yes no meningeal signs Psych: COMMON NORMALS: mental status grossly normal, cooperative and speech normal SPEECH: Yes normal speech Skin: COMMON NORMALS: no rashes or lesions noted GENERAL SKIN EXAM: no rashes or lesions noted Course 2 Vital Signs: Vital signs: Vital Signs Temperature 99.5 F 05/03/25 19:01 Pulse Rate 95 05/03/25 21:35 Respiratory Rate 16 05/03/25 21:35 Blood Pressure 133/56 05/03/25 21:05 Pulse Oximetry 97 05/03/25 21:35 Oxygen Delivery Me thod Room Air 05/03/25 21:35 MDM - SOB/Dyspnea Medical Decision Making Patient presented by ambulance, short of breath since this morning but this has resolved before my examination. Of note he has also been noting some coffee- ground emesis today couple of episodes, also had some abdominal bloating. No previous history of obstruction or GI bleed. Does not report any use of blood thinner. After further questioning he does note that over the past couple of weeks to months he has had darker appearing stools, increasing fatigue and weakness. He has been stable here in the ED, actually requested to go home initially but upon his attempt to stand use the bathroom he nearly passed out. He does note that this has been happening more frequently recently. By lab work, signs of anemia at 9.9, no previous labs to evaluate for any trend. Lactic 5.1, thought to be hypoperfusion in the setting though there is mild leukocytosis. BUN elevated to 64 isolated from his creatinine, which is normal at 1.1. This supports diagnosis of likely upper GI bleed, chest abdomen and pelvis CT does not show any acute abnormalities otherwise. Spoke to Dr. Iniguez, stating he will scope in the morning if patient agrees to admission to the hospital. Patient and family had stated that they did not feel comfortable going home in this condition, and I spoke to Dr. Medina, hospitalist, excepting into the hospital. Patient will be made n.p.o. after midnight. Protonix administered as well as IV fluid bolus. Patient has been hemodynamically stable otherwise. Dr. Kumari informed of this patient's case and current findings and agrees with plan, will place admit orders. Lab Data 05/03/25 19:36 05/03/25 19:36 Labs/Radiology: Radiology Impressions Chest X-Ray 05/03/25 19:17 IMPRESSION: No acute findings. Chest/Abdomen/Pelvis CT 05/03/25 19:50 IMPRESSION: No acute cardiopulmonary process demonstrated Findings of left lower lobe 4 mm noncalcified pulmonary nodule for follow-up IMPRESSION: Decompressed thickened colon correlate to exclude colitis no obstruction Laboratory Results WBC 12.29 10^3/uL (3.29-11.43) H 05/03/25 19:36 RBC 3.42 10^6/uL (3.85-5.65) L 05/03/25 19:36 Hgb 9.90 g/dL (11.27-16.99) L 05/03/25 19:36 Hct 30.6 % (37-53) L 05/03/25 19:36 MCV 89.5 fl (82-101) 05/03/25 19:36 MCH 28.9 pg (27-33) 05/03/25 19:36 MCHC 32.4 g/dL (30-55) 05/03/25 19:36 RDW 12.8 % (12.1-15.1) 05/03/25 19:36 Plt Count 211 10^3/cmm (157-399) 05/03/25 19:36 MPV 11.1 fL (7.4-10.4) H 05/03/25 19:36 Neut % (Auto) 82.4 % 05/03/25 19:36 Lymph % (Auto) 14.3 % 05/03/25 19:36 [place] % (Auto) 2.8 % 05/03/25 19:36 Eos % (Auto) 0.0 % 05/03/25 19:36 Baso % (Auto) 0.2 % 05/03/25 19:36 Neut # (Auto) 10.12 10^3/uL (1.8-7.7) H 05/03/25 19:36 Lymph # (Auto) 1.8 10^3/uL (0.8-4.8) 05/03/25 19:36 [place] # (Auto) 0.4 10^3/uL (0.2-0.9) 05/03/25 19:36 Eos # (Auto) 0.0 10^3/uL (0.0-0.8) 05/03/25 19:36 Baso # (Auto) 0.0 10^3/uL (0.0-0.1) 05/03/25 19:36 Nucleated RBC % (auto) 0 % 05/03/25 19:36 Nucleated RBCs # 0.0 /100WBC 05/03/25 19:36 PT 15.80 SECONDS (12.1-14.9) H 05/03/25 19:36 INR 1.18 (0.8-1.2) 05/03/25 19:36 APTT 21.3 SECONDS (23.9-36.7) L 05/03/25 19:36 Specimen Type Arterial 05/03/25 20:49 Sample Site Radial, right 05/03/25 20:49 ABG pH 7.45 (7.35-7.45) 05/03/25 20:49 ABG pCO2 33.2 mmHg (35-45) L 05/03/25 20:49 ABG pO2 78.3 mmHg (80.0-100.0) L 05/03/25 20:49 ABG HCO3 23.0 mmol/L (22-26) 05/03/25 20:49 ABG O2 Saturation 93.8 05/03/25 20:49 ABG Base Excess -0.8 mmol/L (-2.0-2.0) 05/03/25 20:49 Albert Test Pos 05/03/25 20:49 A-a O2 Gradient 3.9 mmHg (5-10) L 05/03/25 20:49 Hematocrit 25.9 % (42-52) L 05/03/25 20:49 Hgb O2 Saturation 92.3 % (95-100) L 05/03/25 20:49 Carboxyhemoglobin < 0.3 %THgb (0.4-20.1) L 05/03/25 20:49 Methemoglobin 1.6 % (0.4-1.5) H 05/03/25 20:49 Total Hemoglobin 8.4 g/dL (14-18) L 05/03/25 20:49 Sodium 140.0 mmol/L (131-143) 05/03/25 20:49 Potassium 3.9 mmol/L (3.5-5.0) 05/03/25 20:49 Glucose 311.0 mg/dL (70-115) H 05/03/25 20:49 Ionized Calcium 1.3 mmol/L (1.1-1.4) 05/03/25 20:49 O2 Delivery Device Room air 05/03/25 20:49 Market Research Worker ID [email or web address] 05/03/25 20:49 Sodium 142 mmol/L (136-145) 05/03/25 19:36 Potassium 4.5 mmol/L (3.5-5.1) 05/03/25 19:36 Chloride 102 mmol/L (98-107) 05/03/25 19:36 Carbon Dioxide 22 mmol/L (22-29) 05/03/25 19:36 Anion Gap 22.5 (5-19) H 05/03/25 19:36 BUN 64 mg/dL (8-23) H 05/03/25 19:36 Creatinine 1.1 mg/dL (0.7-1.2) 05/03/25 19:36 GFR Calculation Not Reportable 05/03/25 19:36 Glucose 326 mg/dL (65-115) H 05/03/25 19:36 Calculated Osmolality 325 mOsm/kg (285-295) H 05/03/25 19:36 Lactic Acid 5.1 mmol/L (0.5-2.2) H* 05/03/25 19:36 Calcium 10.0 mg/dL (8.5-10.5) 05/03/25 19:36 Total Bilirubin 0.5 mg/dL (0.15-1.2) 05/03/25 19:36 AST 14 U/L (0-40) 05/03/25 19:36 ALT 15 U/L (0-41) 05/03/25 19:36 Alkaline Phosphatase 40 U/L (40-130) 05/03/25 19:36 Troponin T Baseline 21 ng/L (0-15) H 05/03/25 19:36 NT-Pro-B Natriuret Pep 145 pg/mL (0-450) 05/03/25 19:36 Total Protein 5.6 g/dL (6.6-8.7) L 05/03/25 19:36 Albumin 3.9 g/dL (3.5-5.2) 05/03/25 19:36 Globulin 1.7 g/dL (1.3-4.6) 05/03/25 19:36 Urine Color Yellow (Yellow) 05/03/25 20: Urine Appearance Clear (CLEAR) 05/03/25: Urine pH 5.5 (5-7) 05/03/25: Ur Specific [place] 1.031 (1.005-1.030) H 05/03/25 20:25 Urine Protein Negative (Negative) 05/03/25: Urine Glucose (UA) 3+ (Normal) H 05/03/25 20:25 Urine Ketones Trace (Negative) 05/03/25 20:25 Urine Blood Negative (Negative) 05/03/25 20: Urine Nitrate Negative (Negative) 05/03/25 20: Urine Bilirubin Negative (Negative) 05/03/25 20:25 Urine Urobilinogen 0.2 mg/dL (Negative) 05/03/25 20:25 Ur Leukocyte Esterase Negative (Negative) 05/03/25 20:25 Urine RBC 0-2 /hpf (0-2) 05/03/25 20:25 Urine WBC 0-5 /hpf (0-5) 05/03/25 20:25 Ur Squamous Epith Cells 0-5 /hpf (0-5) 05/03/25 20: Amorphous Sediment Not Reportable 05/03/25 20:25 Urine Bacteria None seen /hpf (NONE) 05/03/25 20: Hyaline Casts 0-4 /lpf H 05/03/25 20:25 Influenza A (PCR) Negative (Negative) 05/03/25 19:28 Influenza Type B (PCR) Negative (Negative) 05/03/25 19:28 RSV (PCR) Negative (Negative) 05/03/25 19:28 SARS-CoV-2 (PCR) Negative (Negative) 05/03/25 19:28 All radiology interpretation(s) finalized by discharge Discharge Plan Discharge Patient Disposition: Admitted As Inpatient Admit Provider: Trace Medina Clinical Impression: Acute upper GI bleed Condition: Stable Coding Level of Care Code ED Production Support Analyst for Chg Fwd Documented by User: Eli Kumari MD 05/03/25 21:59 HPI - SOB/Dyspnea 2 General: Chief Complaint: Shortness of Breath/Dyspnea Stated Complaint: SOB, GI Issues Time Seen by Provider: 05/03/25 19:34 Related Data Allergies Allergy/AdvReac Type Severity Reaction Status Date / Time No Known Allergies Allergy Verified 05/03/25 19:05 PFS ED 2 [facility]: Social History Smoking and tobacco/nicotine status: former use of tobacco/nicotine Course 2 Vital Signs: Vital signs: Vital Signs Temperature 99.5 F 05/03/25 19:01 Pulse Rate 95 05/03/25 21:35 Respiratory Rate 16 05/03/25 21:35 Blood Pressure 133/56 05/03/25 21:05 Pulse Oximetry 97 05/03/25 21:35 Oxygen Delivery Me thod Room Air 05/03/25 21:35 MDM - SOB/Dyspnea Medical Decision Making Patient presented by ambulance, short of breath since this morning but this has resolved before my examination. Of note he has also been noting some coffee- ground emesis today couple of episodes, also had some abdominal bloating. No previous history of obstruction or GI bleed. Does not report any use of blood thinner. After further questioning he does note that over the past couple of weeks to months he has had darker appearing stools, increasing fatigue and weakness. He has been stable here in the ED, actually requested to go home initially but upon his attempt to stand use the bathroom he nearly passed out. He does note that this has been happening more frequently recently. By lab work, signs of anemia at 9.9, no previous labs to evaluate for any trend. Lactic 5.1, thought to be hypoperfusion in the setting though there is mild leukocytosis. BUN elevated to 64 isolated from his creatinine, which is normal at 1.1. This supports diagnosis of likely upper GI bleed, chest abdomen and pelvis CT does not show any acute abnormalities otherwise. Spoke to Dr. Iniguez, stating he will scope in the morning if patient agrees to admission to the hospital. Patient and family had stated that they did not feel comfortable going home in this condition, and I spoke to Dr. Medina, hospitalist, excepting into the hospital. Patient will be made n.p.o. after midnight. Protonix administered as well as IV fluid bolus. Patient has been hemodynamically stable otherwise. Dr. Kumari informed of this patient's case and current findings and agrees with plan, will place admit orders. ATTENDING PHYSICIAN ATTESTATION: I, Eli Kumari MD, have provided a substantive portion of the care for this patient. I have personally evaluated this patient, performed an independent history, physical exam, reviewed labwork, imaging, and agree with the plan of care as hereby documented by NANCY. MDM: Patient is an 84-year-old male presents with a chief complaint of shortness of breath with exertion, lightheadedness and near syncope. Patient also started experiencing black stools today. Patient states that he has not fallen or injured himself. He denies chest pain. He has not had a fever, denies cough, hemoptysis or leg swelling. Patient is not experiencing abdominal pain but has been nauseated and has vomited material that is brown/black. He states he did drink a root beer prior to vomiting. No difficulty urinating or dysuria. Physical Exam: Vital signs were reviewed. Patient is alert and oriented. Patient is breathing comfortably, no increased WOB or accessory muscle use. SpO2 is above 95% on RA. Patient has clear lungs b/l, no rhonchi, wheezing or crackles. No hypotension or tachycardia. Abdomen is soft, nondistended and nontender. Patient is moving all extremities, no deformity or gross injury. No lower extremity asymmetry. Lab work is reviewed. Patient has a minimally elevated white blood cell count which is not clinically significant and is nonspecific. Patient is anemic, do not have prior to comparison. Patient has an elevated lactic acid and elevated anion gap. I do not feel that this patient is septic, causes likely symptomatic anemia rather than infectious. UA does not demonstrate infection. He is negative for COVID and flu. He was treated with IV fluids, IV pantoprazole and admitted for suspected upper GI bleeding. Lab Data 05/03/25 19:36 05/03/25 19:36 Labs/Radiology: Radiology Impressions Chest X-Ray 05/03/25 19:17 IMPRESSION: No acute findings. Chest/Abdomen/Pelvis CT 05/03/25 19:50 IMPRESSION: No acute cardiopulmonary process demonstrated Findings of left lower lobe 4 mm noncalcified pulmonary nodule for follow-up IMPRESSION: Decompressed thickened colon correlate to exclude colitis no obstruction Laboratory Results WBC 12.29 10^3/uL (3.29-11.43) H 05/03/25 19:36 RBC 3.42 10^6/uL (3.85-5.65) L 05/03/25 19:36 Hgb 9.90 g/dL (11.27-16.99) L 05/03/25 19:36 Hct 30.6 % (37-53) L 05/03/25 19:36 MCV 89.5 fl (82-101) 05/03/25 19:36 MCH 28.9 pg (27-33) 05/03/25 19:36 MCHC 32.4 g/dL (30-55) 05/03/25 19:36 RDW 12.8 % (12.1-15.1) 05/03/25 19:36 Plt Count 211 10^3/cmm (157-399) 05/03/25 19:36 MPV 11.1 fL (7.4-10.4) H 05/03/25 19:36 Neut % (Auto) 82.4 % 05/03/25 19:36 Lymph % (Auto) 14.3 % 05/03/25 19:36 [place] % (Auto) 2.8 % 05/03/25 19:36 Eos % (Auto) 0.0 % 05/03/25 19:36 Baso % (Auto) 0.2 % 05/03/25 19:36 Neut # (Auto) 10.12 10^3/uL (1.8-7.7) H 05/03/25 19:36 Lymph # (Auto) 1.8 10^3/uL (0.8-4.8) 05/03/25 19:36 [place] # (Auto) 0.4 10^3/uL (0.2-0.9) 05/03/25 19:36 Eos # (Auto) 0.0 10^3/uL (0.0-0.8) 05/03/25 19:36 Baso # (Auto) 0.0 10^3/uL (0.0-0.1) 05/03/25 19:36 Nucleated RBC % (auto) 0 % 05/03/25 19:36 Nucleated RBCs # 0.0 /100WBC 05/03/25 19:36 PT 15.80 SECONDS (12.1-14.9) H 05/03/25 19:36 INR 1.18 (0.8-1.2) 05/03/25 19:36 APTT 21.3 SECONDS (23.9-36.7) L 05/03/25 19:36 Specimen Type Arterial 05/03/25 20:49 Sample Site Radial, right 05/03/25 20:49 ABG pH 7.45 (7.35-7.45) 05/03/25 20:49 ABG pCO2 33.2 mmHg (35-45) L 05/03/25 20:49 ABG pO2 78.3 mmHg (80.0-100.0) L 05/03/25 20: ABG HCO3 23.0 mmol/L (22-26) 05/03/25 20:49 ABG O2 Saturation 93.8 05/03/25 20:49 ABG Base Excess -0.8 mmol/L (-2.0-2.0) 05/03/25 20: Albert Test Pos 05/03/25 20:49 A-a O2 Gradient 3.9 mmHg (5-10) L 05/03/25 20:49 Hematocrit 25.9 % (42-52) L 05/03/25 20:49 Hgb O2 Saturation 92.3 % (95-100) L 05/03/25 20:49 Carboxyhemoglobin < 0.3 %THgb (0.4-20.1) L 05/03/25 20:49 Methemoglobin 1.6 % (0.4-1.5) H 05/03/25 20:49 Total Hemoglobin 8.4 g/dL (14-18) L 05/03/25 20:49 Sodium 140.0 mmol/L (131-143) 05/03/25 20:49 Potassium 3.9 mmol/L (3.5-5.0) 05/03/25 20:49 Glucose 311.0 mg/dL (70-115) H 05/03/25 20:49 Ionized Calcium 1.3 mmol/L (1.1-1.4) 05/03/25 20:49 O2 Delivery Device Room air 05/03/25 20:49 Market Research Worker ID [email or web address] 05/03/25 20:49 Sodium 142 mmol/L (136-145) 05/03/25 19:36 Potassium 4.5 mmol/L (3.5-5.1) 05/03/25 19:36 Chloride 102 mmol/L (98-107) 05/03/25 19:36 Carbon Dioxide 22 mmol/L (22-29) 05/03/25 19:36 Anion Gap 22.5 (5-19) H 05/03/25 19:36 BUN 64 mg/dL (8-23) H 05/03/25 19:36 Creatinine 1.1 mg/dL (0.7-1.2) 05/03/25 19:36 GFR Calculation Not Reportable 05/03/25 19:36 Glucose 326 mg/dL (65-115) H 05/03/25 19:36 Calculated Osmolality 325 mOsm/kg (285-295) H 05/03/25 19:36 Lactic Acid 5.1 mmol/L (0.5-2.2) H* 05/03/25 19:36 Calcium 10.0 mg/dL (8.5-10.5) 05/03/25 19:36 Total Bilirubin 0.5 mg/dL (0.15-1.2) 05/03/25 19:36 AST 14 U/L (0-40) 05/03/25 19:36 ALT 15 U/L (0-41) 05/03/25 19:36 Alkaline Phosphatase 40 U/L (40-130) 05/03/25 19:36 Troponin T Baseline 21 ng/L (0-15) H 05/03/25 19:36 NT-Pro-B Natriuret Pep 145 pg/mL (0-450) 05/03/25 19:36 Total Protein 5.6 g/dL (6.6-8.7) L 05/03/25 19:36 Albumin 3.9 g/dL (3.5-5.2) 05/03/25 19:36 Globulin 1.7 g/dL (1.3-4.6) 05/03/25 19:36 Urine Color Yellow (Yellow) 05/03/25 20:25 Urine Appearance Clear (CLEAR) 05/03/25 20: Urine pH 5.5 (5-7) 05/03/25 20: Ur Specific [place] 1.031 (1.005-1.030) H 05/03/25 20: Urine Protein Negative (Negative) 05/03/25 20: Urine Glucose (UA) 3+ (Normal) H 05/03/25 20:25 Urine Ketones Trace (Negative) 05/03/25 20: Urine Blood Negative (Negative) 05/03/25 20:25 Urine Nitrate Negative (Negative) 05/03/25 20:25 Urine Bilirubin Negative (Negative) 05/03/25 20:25 Urine Urobilinogen 0.2 mg/dL (Negative) 05/03/25 20:25 Ur Leukocyte Esterase Negative (Negative) 05/03/25 20:25 Urine RBC 0-2 /hpf (0-2) 05/03/25 20:25 Urine WBC 0-5 /hpf (0-5) 05/03/25 20:25 Ur Squamous Epith Cells 0-5 /hpf (0-5) 05/03/25 20:25 Amorphous Sediment Not Reportable 05/03/25 20:25 Urine Bacteria None seen /hpf (NONE) 05/03/25 20:25 Hyaline Casts 0-4 /lpf H 05/03/25 20:25 Influenza A (PCR) Negative (Negative) 05/03/25 19:28 Influenza Type B (PCR) Negative (Negative) 05/03/25 19:28 RSV (PCR) Negative (Negative) 05/03/25 19:28 SARS-CoV-2 (PCR) Negative (Negative) 05/03/25 19:28 Discharge Plan Discharge Patient Disposition: Admitted As Inpatient Admit Provider: Trace Medina Clinical Impression: Acute upper GI bleed Condition: Stable Coding Level of Care Code ED Production Support Analyst for Mago Lyn
[2025-05-03 20:12] LABS: Troponin(5th) Baseline 21 ng/L (0-15)
[2025-05-03 20:14] LABS: Respiratory Syncytial Virus Ce NEGATIVE (Negative); SARS-CoV-2 PCR NEGATIVE (Negative)
[2025-05-03 20:22] LABS: Alanine Aminotransferase 15 U/L (0-41); Albumin Level 3.9 g/dL (3.5-5.2); Alkaline Phosphatase 40 U/L (40-130); Anion Gap 22.5 (5-19); Aspartate Amino Transferase 14 U/L (0-40); Blood Urea Nitrogen 64 mg/dL (8-23); Calcium 10.0 mg/dL (8.5-10.5); Carbon Dioxide 22 mmol/L (22-29); Chloride 102 mmol/L (98-107); Creatinine Clr Calc Pharmacy 56.5764; Globulin 1.7 g/dL (1.3-4.6); Glucose 326 mg/dL (65-115); NT Pro B Type Natriuretic Pept 145 pg/mL (0-450); Osmolality Calculated 325 mOsm/kg (285-295); Potassium 4.5 mmol/L (3.5-5.1); Sodium 142 mmol/L (136-145); Total Protein 5.6 g/dL (6.6-8.7)
[2025-05-03 20:31] LABS: Lactic Sepsis W/Reflex 5.1 mmol/L (0.5-2.2)
[2025-05-03] MEDS: iohexol 350 mg/mL 500 mL Btl (per mL) IV (20:36)
[2025-05-03 20:59] LABS: ABG PCO2 33.2 mmHg (35-45); ABG PH Result 7.45 (7.35-7.45); Alveolar-Arterial Oxygen Gradi 3.9 mmHg (5-10); Arterial Blood Gas Hematocrit 25.9 % (42-52); Blood Gas Allen Test Pos; Blood Gas Sample Site Radial, right; Blood Gas Sample Type Arterial; Carboxyhemoglobin < 0.3 %THgb (0.4-20.1); Glucose Level-ABG 311.0 mg/dL (70-115); HCO3 ABG 23.0 mmol/L (22-26); Ionized Calcium Level - ABG 1.3 mmol/L (1.1-1.4); Methemoglobin 1.6 % (0.4-1.5); Oxygen Saturation ABG 93.8; PO2 ABG 78.3 mmHg (80.0-100.0); Potassium Level - ABG 3.9 mmol/L (3.5-5.0); Sodium Level - ABG 140.0 mmol/L (131-143)
[2025-05-03] MEDS: pantoprazole 40 mg SDV 80 MG IVP (21:07)
[2025-05-03 21:12] LABS: Glucose Urine UA 3+ (Normal); Nitrate Urine Negative (Negative)
[2025-05-03 21:18] LABS: Specific Gravity, Urine 1.031 (1.005-1.030)
--- NOTE | 2025-05-03 21:24 | ECG_ITS ---
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 Measurements Intervals [place] Rate: 94 P: 62 MN: 162 QRS: 52 QRSD: 92 T: -34 QT: 377 QTc: 472 Interpretive Statements SINUS RHYTHM NONSPECIFIC T-WAVE ABNORMALITY Compared to ECG 05/03/2025 19:27:03 No significant changes Electronically Signed On 05-03-2025 23:47:44 TRIMMER TAILER by Carmen Gutierrez M.D. [email or web address] [email or web address]
[2025-05-03 21:36] LABS: Reflex Lactate Order REFLEX LACTIC ORDERD
[2025-05-03 22:10] LABS: Troponin 5 2HR 24.12 ng/L (0-15); Troponin 5 2HR Delta 3.12 ABS# (0-10)
--- NOTE | 2025-05-03 22:17 | CTR_ITS ---
PROCEDURE INFORMATION: Exam: CT Head Without Contrast Exam date and time: 05/03/2025 10:32 PM Age: 84 years old Clinical indication: Syncope and collapse; Additional info: Pre syncope to rule out stroke TECHNIQUE: Imaging protocol: Computed tomography of the head without contrast. Radiation optimization: All CT scans at this facility use at least one of these dose optimization techniques: automated exposure control; mA and/or kV adjustment per patient size (includes targeted exams where dose is matched to clinical indication); or iterative reconstruction. COMPARISON: No relevant prior studies available. RADIATION DOSE METRICS: Total DLP (mGy-cm): 1228.18 FINDINGS: Brain: Cerebral volume loss, which may be age related. Periventricular white matter hypoattenuation is consistent with chronic ischemic small vessel disease. Rose-white differentiation is otherwise normal. No mass or mass effect. No hemorrhage. Cerebral ventricles: Ex vacuo ventricular dilatation. Pituitary gland and sella: A partially empty sella is present. Paranasal sinuses: Visualized sinuses are unremarkable. No fluid levels. Mastoid air cells: Visualized mastoid air cells are well aerated. Bones: Unremarkable. No acute fracture. Soft tissues: Unremarkable. Vasculature: Calcification of the V4 segment of the vertebral arteries is noted. CT/CT head wo con* [id number] IMPRESSION: 1. No acute intracranial process. 2. 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 Otherwise, no acute intracranial process. 3. Partially empty sella, which is nonspecific and may be normal variant or incidental/asymptomatic. Correlate for headache/visual disturbances. Follow-up nonemergent pituitary MRI can be obtained if clinically indicated.
--- NOTE | 2025-05-03 22:37 | PM.HP ---
Providers/Chief Complaint Admitting Physician: Trcae Medina MD Primary Care Provider: Mel Be DO Chief Complaint: SOB, GI Issues History of Present Illness As per the previous notes and the patient/family: Ronnie Shell is a 84 year old male with PMH of cardiac stenting on aspirin and lipitor, HTN on anti HTN, DM on oral anti DM, came with h/o dizziness, weakness and sob. it has been going on for a couple of days until today when he felt so sob that he was trying to gasp for air when trying to walk in the house or going slow upstairs. when he was in the restroom, he was getting tired and unable to get up from the toilet as well. he mentioned that he has been passing black tarry stools since 3 days and today it was a large bowel motiion with clots. he was feeling dizzy but never passed out. he also later after the bowel motion, threw up coffee ground emesis like 4-5 times. never had such episodes in his life. He has been using aleve/naproxen for pain from a month or so on regular basis. no previous h/o GERD. no fevers, wt loss or any h/o malignancy. mild increase in LLE, but no recent chest pain, pressure or palpitations. no recent abd pains. no alcohol intake or any drug intake, non smoker. Review of Systems General: Reports: 10 or more systems reviewed and unremarkable except in HPI and below Medications/Allergies Allergies Allergy/AdvReac Type Severity Reaction Status Date / Time No Known Allergies Allergy Verified 05/03/25 19:05 PFSH Acute PFSH: Social History Smoking and tobacco/nicotine status: former use of tobacco/nicotine Vitals/I&O/Wt Last Vital Signs Temp 99.5 F 05/03/25 19:01 Pulse 98 05/03/25 22:08 Resp 16 05/03/25 21:35 BP 134/64 05/03/25 22:08 Pulse Ox 95 05/03/25 22:08 O2 Del Method Room Air 05/03/25 21:35 05/03/25 05/03/25 05/03/25 06:59 14:59 22:59 Intake Total 1000 / 1000 Balance 1000 / 1000 Weight last 48 hrs Weight 87.09 kg Physical Exam Narrative: General: Alert and oriented, lying comfortably without any distress, having pallor positive in the sclera and hands appreciated HEENT: Normocephalic, atraumatic, grossly unremarkable exam Cardio: normal rate rhythm, normal S1-S2 without any murmurs, rubs, or gallops and JVD normal Respiratory: normal vascular breathing on auscultation without any wheezes, stridor, rhonchi GI: Abdomen soft, nontender, nondistended, normoactive bowel sounds present all 4 quadrants, Neuro: intact cranial nerves motor and sensory and cerebellar/coordination function without any focal neurological deficit Behavior: Appropriate and cooperative Extremities: Adequate palpable pulses, mild trace edema Skin: pallor positive Data 05/03/25 19:36 05/03/25 19:36 Micro: Microbiology 05/03/25 19:37 Blood Culture - Preliminary Blood SPECIMEN COLLECTED 05/03/25 19:36 Blood Culture - Preliminary Blood SPECIMEN COLLECTED A&P Assessment and plan 1. Acute upper GI bleed: patient presented with multiple episodes of coffee ground emesis and black tarry stools PPI IV bid Sucralfate vane 1 g every 6 Maintain 2 IV bore cannulas CBC every 8 hourly Hold NSAIDs and aspirin meanwhile Hold antihypertensives Monitor hemodynamics Telemetry monitoring Patient lactate is raised, no abdominal pain, repeat lactate in the morning, if the patient is still having increased lactate then consider CT abdomen pelvis with contrast Patient already scheduled for endoscopy tomorrow, n.p.o. from midnight, follow-up with the surgery 2. Pre-syncope: patient has been dizzy in the past few days, likely having dehydration and also anemia, but Patient is known to have coronary artery disease and status post stent stenting therefore to proceed with syncope workup: Echo considering patient might have aortic valve stenosis that can also lead to Claudine syndrome? Telemetry monitoring Serial EKGs to follow carotid US CT head was negative PT/OT evaluation Delta troponin not significantly raised cont to monitor 3. Colitis: CT chest abd pelvis with contrast showed features of colitis cipro and metro follow blood cultures monitor for any fever spikes 4. Hypertension: holld anti HTN at the moment considering the patient is having normal BP, NPO and likely UGIB 5. CAD (coronary artery disease): h/o stenting in the past and on aspirin and statins Hold aspirin at the moment, if hemoglobin stable and cleared after endoscopy then to resume based on patient clinical assessment, labs and rest of overall clinical status. Pt meds needs reconciliation, has brought all the meds and aspirin and alebony is not in them but the patient is taking them. to reconcile and add medications for continued T of care as inpatient 6. Diabetes mellitus: Patient on oral antidiabetic medication Insulin sliding scale with the meals Currently hold insulin since the patient is n.p.o. 7. NSAID long-term use: Patient has been emphasized on avoiding NSAIDs in the long-term considering it carries significant side effects including GI bleeding, renal impairment and also effect on the heart To hold NSAIDs/naproxen at the moment. PDMP PDMP Reviewed: Not Reviewed Attestations Medical Necessity Statement*: Patient will stay more than 2 midnights for the management of esophageal bleed and syncope/presyncope workup Time Spent in Patient Care: 16 - 35 minutes (>than 50% of time spent in counselling and/or direct pt care on unit). Other Attestations: Patient condition has been discussed at length with the patient/family, I have independently reviewed the chart labs imaging/diagnostics/EKG. the goals of care and code status with the patient/family/NOK/legal insurance verification representative, and documented accordingly. The management has been done according to the current clinical condition with respect to patient goals of care and based on recommendations/guidelines. The patient/family has been informed about the current condition and further plan of care. Agreed with the plan of care and understood without any language barrier. Every effort was made to ensure accuracy of cold rolling supervisor. Any obvious errors or omissions should be clarified with the author of the document. Coding Level of Care Code 65092 Diagnoses Acute upper GI bleed K92.2 Pre-syncope R55 Colitis K52.9 Hypertension I10 CAD (coronary artery disease) I25.10 Diabetes mellitus E11.9 NSAID long-term use Z79.1
[2025-05-03 23:06] LABS: Magnesium 2.1 mg/dL (1.7-2.3); Thyroid Stimulating Hormone 1.13 uIU/mL (0.27-4.20)
[2025-05-03 23:29] LABS: Lactic Acid level (Lactate) 5.0 mmol/L (0.5-2.2)
[2025-05-03 23:42] LABS: Estmated Average Glucose 169; Hemoglobin A1C 7.5 % (4.0-6.0)
[2025-05-03] MEDS: pantoprazole 40 mg SDV IVP (23:50)
[2025-05-03] MEDS: alum-mag-hydroxide-sime 30 mL UDC 15 ML PO (23:51)
[2025-05-04] VITALS (37 sets, daily range): BP systolic 95–153; BP diastolic 44–63; PULSE 74–100; RESP 12–22; TEMP 36.4–37.4; O2SAT 91–100
[2025-05-04] MEDS: ondansetron 2 mg/ML SDV 2 mL 4 MG IVP (00:34)
[2025-05-04] MEDS: metroNIDAZOLE IV 500 MG/100 ML PREMIX 100 MG IV ×2 (01:08→07:48)
--- NOTE | 2025-05-04 01:15 | ECG_ITS ---
[employer] Test Date: 2025-05-04 Pat Name: Ronnie Shell Department: Room: 250 Gender: Male Sight Effects Specialist: : 1940 Requested By: Trace Medina Order Number: [id number] Reading MD: MICHAELA MELISSA Measurements Intervals [place] Rate: 91 P: 37 AR: 169 QRS: 38 QRSD: 89 T: -6 QT: 377 QTc: 464 Interpretive Statements SINUS RHYTHM NONSPECIFIC T-WAVE ABNORMALITY Compared to ECG 05/03/2025 21:24:06 No significant changes Electronically Signed On 05-06-2025 16:11:29 BOBCAT DRIVER/LABOR by MICHAELA MELISSA [email or web address] [id number]
[2025-05-04 02:17] LABS: Hematocrit 21.1 % (37-53); Hemoglobin 6.70 g/dL (11.27-16.99); Mean Corpuscular HGB Conc 31.8 g/dL (30-55); Mean Corpuscular Hemoglobin 29.3 pg (27-33); Mean Corpuscular Volume 92.1 fl (82-101); Nucleated Red Blood Cells % 0 %; Platelet Count 165 10^3/cmm (157-399); Red Blood Count 2.29 10^6/uL (3.85-5.65); White Blood Count 11.33 10^3/uL (3.29-11.43)
[2025-05-04 02:34] LABS: Troponin 5 6HR 31.88 ng/L (0-15); Troponin 5 6HR Delta 10.88 ng/L (0-12)
[2025-05-04 02:35] LABS: Alanine Aminotransferase 11 U/L (0-41); Albumin Level 3.2 g/dL (3.5-5.2); Alkaline Phosphatase 31 U/L (40-130); Anion Gap 17.9 (5-19); Aspartate Amino Transferase 12 U/L (0-40); Blood Urea Nitrogen 67 mg/dL (8-23); Calcium 9.1 mg/dL (8.5-10.5); Carbon Dioxide 21 mmol/L (22-29); Chloride 105 mmol/L (98-107); Globulin 1.2 g/dL (1.3-4.6); Glucose 328 mg/dL (65-115); Osmolality Calculated 320 mOsm/kg (285-295); Potassium 4.9 mmol/L (3.5-5.1); Sodium 139 mmol/L (136-145); Total Protein 4.4 g/dL (6.6-8.7)
[2025-05-04 02:42] LABS: Lactic Sepsis W/Reflex 4.7 mmol/L (0.5-2.2)
[2025-05-04 04:02] LABS: Reflex Lactate Order REFLEX LACTIC ORDERD
--- NOTE | 2025-05-04 04:15 | ECG_ITS ---
[employer] Test Date: 2025-05-04 Pat Name: Ronnie Shell Department: Room: 250 Gender: Male Cardiopulmonary Supervisor: : 1940 Requested By: Trace Medina Order Number: [id number] Reading MD: MICHAELA MELISSA Measurements Intervals [place] Rate: 85 P: 54 MD: 168 QRS: 43 QRSD: 94 T: -6 QT: 374 QTc: 447 Interpretive Statements SINUS RHYTHM NONSPECIFIC T-WAVE ABNORMALITY Compared to ECG 05/04/2025 01:20:19 No significant changes Electronically Signed On 05-06-2025 16:10:53 CLERK TYPIST by MICHAELA MELISSA [id number]
--- NOTE | 2025-05-04 05:29 | PC.NURSE ---
ICU Transfer: Pt admitted to [place] for GI Bleed. At 0300 Dr. Medina called and said he wanted the pt to be transferred to ICU for closer monitoring due to significant drop in H&H. Pt transferred to ICU around 0500 with blood transfusion running.
[2025-05-04 08:42] LABS: Hematocrit 23.8 % (37-53); Hemoglobin 7.60 g/dL (11.27-16.99); Mean Corpuscular HGB Conc 31.9 g/dL (30-55); Mean Corpuscular Hemoglobin 28.6 pg (27-33); Mean Corpuscular Volume 89.5 fl (82-101); Nucleated Red Blood Cells % 0 %; Platelet Count 166 10^3/cmm (157-399); Red Blood Count 2.66 10^6/uL (3.85-5.65); White Blood Count 11.72 10^3/uL (3.29-11.43)
--- NOTE | 2025-05-04 08:46 | PC.PHAR ---
presented pts' bag of rx bottles for verification. Some of pts medications were not in the bag but were verified by and added several otc supplements and a regular strength asa daily. Pt has not taken medications since May.02
[2025-05-04 09:01] LABS: Lactic Acid level (Lactate) 3.1 mmol/L (0.5-2.2)
[2025-05-04] MEDS: alum-mag-hydroxide-sime 30 mL UDC 15 ML PO ×2 (09:44→15:15)
[2025-05-04] MEDS: pantoprazole 40 mg SDV IVP ×2 (09:45→22:34)
--- NOTE | 2025-05-04 10:21 | PM.CONSULT ---
Providers/Reason For Consult Consulting Physician/Specialty*: Dr. Iniguez general surgery Reason for Consult*: Melena Attending Physician: Beulah Sanford MD Primary Care Provider: Mel Be DO History of Present Illness History of Present Illness Ronnie Shell is a 84 year old male who presented with melena. at bedside. Multiple comorbidities including coronary artery disease. Long-term NSAID use. Medications/Allergies Home Medications ?Medication ?Instructions ?Recorded ?Confirmed ?Last Taken ?Type amlodipine 10 mg tablet 10 mg PO DAILY 05/04/25 05/04/25 05/02/25 History ascorbic acid (vitamin C) 500 mg 500 mg PO BID 05/04/25 05/04/25 05/02/25 History tablet (Vitamin C) aspirin 325 mg tablet 325 mg PO DAILY 05/04/25 05/04/25 05/02/25 History atorvastatin 40 mg tablet 40 mg PO QPM 05/04/25 05/04/25 05/02/25 History cinnamon bark 500 mg capsule 500 mg PO DAILY 05/04/25 05/04/25 05/02/25 History (Cinnamon) clopidogrel 75 mg tablet 75 mg PO DAILY 05/04/25 05/04/25 05/02/25 History empagliflozin 25 mg-linagliptin 5 1 tab PO DAILY 05/04/25 05/04/25 05/02/25 History mg-metformin ER 1,000 mg tablet,24hr (Trijardy XR) fenofibrate 160 mg tablet 160 mg PO DAILY 05/04/25 05/04/25 05/02/25 History glucosamine sulfate 500 mg tablet 500 mg PO BID 05/04/25 05/04/25 05/02/25 History (Glucosamine) levothyroxine 25 mcg tablet 25 mcg PO QAM 05/04/25 05/04/25 05/02/25 History (Synthroid) losartan 100 mg tablet 100 mg PO DAILY 05/04/25 05/04/25 05/02/25 History metoprolol succinate 100 mg 100 mg PO DAILY 05/04/25 05/04/25 05/02/25 History tablet,extended release 24 hr mupirocin 2 % topical ointment See Rx Instructions .Route .COMPLEX 05/04/25 05/04/25 Unknown History tramadol 50 mg tablet 100 mg PO TID PRN Pain 05/04/25 05/04/25 Unknown History triamterene 37.5 1 cap PO DAILY 05/04/25 05/04/25 05/02/25 History mg-hydrochlorothiazide 25 mg capsule Allergies Allergy/AdvReac Type Severity Reaction Status Date / Time No Known Allergies Allergy Verified 05/03/25 19:05 Current Medications Generic Name Dose Route Start Last Admin Trade Name Freq PRN Reason Stop Dose Admin Al Hydrox/Mg Hydrox/Simethicone 15 ml 05/03/25 22:15 05/04/25 09:44 Mwyk-Lbj-Jgygtjnot-Cherelle 30 Ml Udc PO 15 ml Q6H MARQUIS Administration Lactated Ringer's 1,000 mls @ 100 mls/hr 05/03/25 22:15 05/04/25 09:49 Lactated Ringers IV 05/04/25 18:14 0 mls/hr .Q10H MARQUIS Infusion Ciprofloxacin/Dextrose 400 mg in 200 mls @ 200 mls/hr 05/03/25 22:30 05/04/25 09:45 Cipro IV 200 mls/hr Q12H MARQUIS Administration Protocol Metronidazole 500 mg in 100 mls @ 100 mls/hr 05/03/25 22:30 05/04/25 09:36 Flagyl Iv IV Infused Q8H MARQUIS Infusion Protocol Insulin Human Lispro 0 unit 05/04/25 08:00 05/04/25 08:13 Insulin Lispro 100 Unit/1 Ml SUBCUT 14 unit WM&BEDTIME MARQUIS Administration Protocol Ondansetron HCl 4 mg 05/03/25 22:13 05/04/25 00:34 Ondansetron 2 Mg/Ml Sdv 2 Ml IVP 4 mg Q8H PRN Administration vomiting, or N/V if npo Pantoprazole Sodium 40 mg 05/03/25 22:15 05/04/25 09:45 Pantoprazole 40 Mg Sdv IVP 40 mg Q12H MARQUIS Administration Sucralfate 1 gm 05/04/25 00:45 05/04/25 07:49 Sucralfate 1 Gm Tablet PO 1 gm Q6H MARQUIS Administration PFSH Acute PFSH: Social History Smoking and tobacco/nicotine status: former use of tobacco/nicotine Vitals/I&O/Wt Last Vital Signs Temp 97.8 F 05/04/25 10:04 Pulse 82 05/04/25 10:04 Resp 18 05/04/25 10:04 BP 122/49 05/04/25 10:04 Pulse Ox 96 05/04/25 10:04 O2 Del Method Room Air 05/04/25 08:40 05/03/25 05/04/25 05/04/25 22:59 06:59 14:59 Intake Total 1000 / 1000 1350 / 2350 986.667 / 986.667 Output Total 300 / 300 400 / 400 Balance 1000 / 1000 1050 / 2050 586.667 / 586.667 Weight last 48 hrs Weight 189 lb 9.561 oz Weight 189 lb 9.561 oz Weight 192 lb 8 oz Weight 192 lb Physical Exam Narrative: Chest: Unlabored breathing room air. No lymphadenopathy. Heart: Regular rate and rhythm. Abdomen: Soft, nontender, nondistended. No masses or lymphadenopathy. Data 05/04/25 08:25 05/04/25 02:07 Micro: Microbiology 05/03/25 19:37 Blood Culture - Preliminary Blood SPECIMEN COLLECTED 05/03/25 19:36 Blood Culture - Preliminary Blood SPECIMEN COLLECTED A&P Assessment and plan 1. Melena: Plan: 84-year-old male who presented with melena. Multiple comorbidities. at bedside. I have explained the risks and benefits of a diagnostic EGD with biopsy and the patient and agree to proceed. PDMP PDMP Reviewed: Not Reviewed Coding Level of Care Code 41463 Diagnoses Melena K92.1
--- NOTE | 2025-05-04 12:02 | ANES.PREANE2 ---
Pre-Anesthetic Assessment Height/Weight: Height 5 ft 9 in Weight 189 lb 9.561 oz Temp Pulse Resp BP Pulse Ox O2 Del Method 97.8 F 83 16 122/51 99 Room Air 05/04/25 11:40 05/04/25 11:40 05/04/25 11:40 05/04/25 11:40 05/04/25 11:40 05/04/25 08:40 Operation Date: 05/04/25 13:20 Proposed Procedures p EGD(Not Applicable) - Jose Iniguez MD Anesthetic Plan ASA status: 4 Anesthesia: MAC Other: No prior issues with anesthesia NPO since yesterday evening Patient has a hemoglobin of 7.6 currently, down from 9.9 yesterday Glucose 477 this a.m. Lactic acid 4.7 EKG sinus rhythm History of hypertension on losartan and metoprolol outpatient CAD history, s/p PCI Plan for MAC anesthesia Medications/Allergies Home Medications ?Medication ?Instructions ?Recorded ?Confirmed ?Last Taken ?Type amlodipine 10 mg tablet 10 mg PO DAILY 05/04/25 05/04/25 05/02/25 History ascorbic acid (vitamin C) 500 mg 500 mg PO BID 05/04/25 05/04/25 05/02/25 History tablet (Vitamin C) aspirin 325 mg tablet 325 mg PO DAILY 05/04/25 05/04/25 05/02/25 History atorvastatin 40 mg tablet 40 mg PO QPM 05/04/25 05/04/25 05/02/25 History cinnamon bark 500 mg capsule 500 mg PO DAILY 05/04/25 05/04/25 05/02/25 History (Cinnamon) clopidogrel 75 mg tablet 75 mg PO DAILY 05/04/25 05/04/25 05/02/25 History empagliflozin 25 mg-linagliptin 5 1 tab PO DAILY 05/04/25 05/04/25 05/02/25 History mg-metformin ER 1,000 mg tablet,24hr (Trijardy XR) fenofibrate 160 mg tablet 160 mg PO DAILY 05/04/25 05/04/25 05/02/25 History glucosamine sulfate 500 mg tablet 500 mg PO BID 05/04/25 05/04/25 05/02/25 History (Glucosamine) levothyroxine 25 mcg tablet 25 mcg PO QAM 05/04/25 05/04/25 05/02/25 History (Synthroid) losartan 100 mg tablet 100 mg PO DAILY 05/04/25 05/04/25 05/02/25 History metoprolol succinate 100 mg 100 mg PO DAILY 05/04/25 05/04/25 05/02/25 History tablet,extended release 24 hr mupirocin 2 % topical ointment See Rx Instructions .Route .COMPLEX 05/04/25 05/04/25 Unknown History tramadol 50 mg tablet 100 mg PO TID PRN Pain 05/04/25 05/04/25 Unknown History triamterene 37.5 1 cap PO DAILY 05/04/25 05/04/25 05/02/25 History mg-hydrochlorothiazide 25 mg capsule Allergies Allergy/AdvReac Type Severity Reaction Status Date / Time No Known Allergies Allergy Verified 05/03/25 19:05 Current Medications Generic Name Dose Route Start Last Admin Trade Name Freq PRN Reason Stop Dose Admin Al Hydrox/Mg Hydrox/Simethicone 15 ml 05/03/25 22:15 05/04/25 09:44 Qmyz-Bki-Rblzbfmgs-Cherelle 30 Ml Udc PO 15 ml Q6H MARQUIS Administration Lactated Ringer's 1,000 mls @ 100 mls/hr 05/03/25 22:15 05/04/25 09:49 Lactated Ringers IV 05/04/25 18:14 0 mls/hr .Q10H MARQUIS Infusion Ciprofloxacin/Dextrose 400 mg in 200 mls @ 200 mls/hr 05/03/25 22:30 05/04/25 11:07 Cipro IV Infused Q12H MAR[facility]IS Infusion Protocol Metronidazole 500 mg in 100 mls @ 100 mls/hr 05/03/25 22:30 05/04/25 09:36 Flagyl Iv IV Infused Q8H MAR[facility]IS Infusion Protocol Insulin Human Lispro 0 unit 05/04/25 08:00 05/04/25 08:13 Insulin Lispro 100 Unit/1 Ml SUBCUT 14 unit WM&BEDTIME MARQUIS Administration Protocol Ondansetron HCl 4 mg 05/03/25 22:13 05/04/25 00:34 Ondansetron 2 Mg/Ml Sdv 2 Ml IVP 4 mg Q8H PRN Administration vomiting, or N/V if npo Pantoprazole Sodium 40 mg 05/03/25 22:15 05/04/25 09:45 Pantoprazole 40 Mg Sdv IVP 40 mg Q12H MARQUIS Administration Sucralfate 1 gm 05/04/25 00:45 05/04/25 07:49 Sucralfate 1 Gm Tablet PO 1 gm Q6H MARQUIS Administration PFSH Anesthesia Social History Smoking and tobacco/nicotine status: former use of tobacco/nicotine Data Anesthesia 05/05/25 04:35 05/05/25 04:35 Short CBC 05/03/25 05/04/25 05/04/25 Range/Units 19:36 02:07 08:25 WBC 12.29 H 11.33 11.72 H (3.29-11.43) 10^3/uL Hgb 9.90 L 6.70 L D 7.60 L (11.27-16.99) g/dL Hct 30.6 L 21.1 L D 23.8 L (37-53) % MCV 89.5 92.1 89.5 (82-101) fl Plt Count 211 165 166 (157-399) 10^3/cmm Neut % (Auto) 82.4 72.3 66.8 % Neut # (Auto) 10.12 H 8.19 H 7.83 H (1.8-7.7) 10^3/uL BMP 05/03/25 05/04/25 19:36 02:07 Sodium 142 139 Potassium 4.5 4.9 Chloride 102 105 Carbon Dioxide 22 21 L BUN 64 H 67 H Creatinine 1.1 1.1 Glucose 326 H 328 H Calcium 10.0 9.1 Cardiac Enzymes 05/03/25 05/03/25 05/04/25 Range/Units 19:36 21:16 02:07 Troponin T Baseline 21 H (0-15) ng/L Troponin T 120 Minute 24.12 H (0-15) ng/L Delta Troponin T 3.12 (0-10) ABS# Troponin T Hi Sens 6Hr 31.88 H (0-15) ng/L Troponin T Hi Sens 6Hr Delta 10.88 (0-12) ng/L NT-Pro-B Natriuret Pep 145 (0-450) pg/mL Liver Function 05/03/25 05/04/25 Range/Units 19:36 02:07 Total Bilirubin 0.5 0.2 (0.15-1.2) mg/dL AST 14 12 (0-40) U/L ALT 15 11 (0-41) U/L Alkaline Phosphatase 40 31 L (40-130) U/L Albumin 3.9 3.2 L (3.5-5.2) g/dL Urine 05/03/25 Range/Units 20:25 Urine Color Yellow (Yellow) Urine Appearance Clear (CLEAR) Urine pH 5.5 (5-7) Ur Specific [place] 1.031 H (1.005-1.030) Urine Protein Negative (Negative) Urine Glucose (UA) 3+ H (Normal) Urine Ketones Trace (Negative) Urine Nitrate Negative (Negative) Urine Bilirubin Negative (Negative) Ur Leukocyte Esterase Negative (Negative) Urine RBC 0-2 (0-2) /hpf Urine WBC 0-5 (0-5) /hpf Blood Bank 05/03/25 21:16 Blood Type A Positive Rho(D) Type Rh positive Antibody Screen Negative COVID Results 05/03/25 19:28 SARS-CoV-2 (PCR) Negative Coags 05/03/25 19:36 PT 15.80 H INR 1.18 APTT 21.3 L ABG 05/03/25 20:49 Specimen Type Arterial Sample Site Radial, right ABG pH 7.45 ABG pCO2 33.2 L ABG pO2 78.3 L ABG HCO3 23.0 ABG O2 Saturation 93.8 ABG Base Excess -0.8 A-a O2 Gradient 3.9 L O2 Delivery Device Room air Microbiology 05/03/25 19:37 Blood Culture - Preliminary Blood SPECIMEN COLLECTED 05/03/25 19:36 Blood Culture - Preliminary Blood SPECIMEN COLLECTED Cardiac Studies: Echocardiogram 05/04/25
--- NOTE | 2025-05-04 13:04 | P.PN_ITS ---
Subjective 2 Subjective: Overnight labs and H&P reviewed. Patient admitted with upper GI bleed. Had melanotic bowel movement this morning. Hemodynamics are stable. Family reports that patient had presyncopal episode yesterday at home. At home had both hematemesis and melena Medications: Reviewed: Yes Vitals/I&O/Wt Last Vital Signs Temp 97.8 F 05/04/25 12:19 Pulse 85 05/04/25 12:19 Resp 16 05/04/25 12:19 BP 118/59 05/04/25 12:19 Pulse Ox 98 05/04/25 12:19 O2 Del Method Room Air 05/04/25 08:40 05/03/25 05/04/25 05/04/25 22:59 06:59 14:59 Intake Total 1000 / 1000 1350 / 2350 1536.667 / 1536.667 Output Total 300 / 300 400 / 400 Balance 1000 / 1000 1050 / 2050 1136.667 / 1136.667 Weight last 48 hrs Weight 86 kg Weight 86 kg Weight 87.317 kg Weight 87.09 kg Physical Exam 2 Narrative: General: No acute distress, AO x3 HEENT: PERRLA, pupils bilaterally equal and reactive, pallors not present Chest: Normal vesicular breath sounds, no added sounds, equal good air entry bilaterally CVS: S1-S2 regular, no murmurs, no tachycardia, no gallops, no rubs Abdomen: Soft, nontender, no organomegaly, bowel sounds present Neuro: No focal deficits, no facial deformity, AO x3, power 5/5 in all limbs Data 05/04/25 08:25 05/04/25 02:07 Micro: Microbiology 05/03/25 19:37 Blood Culture - Preliminary Blood SPECIMEN COLLECTED 05/03/25 19:36 Blood Culture - Preliminary Blood SPECIMEN COLLECTED A&P Assessment and plan 1. Acute upper GI bleed: 2. Pre-syncope: 3. Hypertension: 4. CAD (coronary artery disease): 5. Diabetes mellitus: 6. NSAID long-term use: Plan: 2024 Patient admitted overnight with chief complaints of upper GI bleed presyncope hematemesis and melena at home. He is going for an endoscopy this afternoon to assess for source of bleeding. Reports a history of using aspirin 325 mg daily since his stenting several years ago. Will likely need to reduce this to a baby aspirin going forward. Also reports using NSAIDs over the past several weeks for back pain. Suspect patient to have gastric/duodenal ulcer related to this. Does not take any PPIs. Discontinue Pepcid IV Start Protonix 40 mg IV every 12 hours. Continue Carafate No clinical correlate of colitis on exam today. Abdominal soft, nontender. currently afebrile. Discontinue Cipro and Flagyl He is receiving 2 units of blood transfusion, recheck H&H posttransfusion. Continue insulin sliding scale. PDMP PDMP Reviewed: Not Reviewed Attestations 2 Medical Necessity Statement*: endoscopy today Coding Level of Care Code Acute Code for Chg Fwd Diagnoses Acute upper GI bleed K92.2 Pre-syncope R55 Hypertension I10 CAD (coronary artery disease) I25.10 Diabetes mellitus E11.9 NSAID long-term use Z79.1
--- NOTE | 2025-05-04 13:35 | ANE.PACU2 ---
Inpatient post-anesthesia follow up: Airway intact: Yes Vital signs: Temperature 98.8 F Pulse Rate 91 Respiratory Rate 16 Blood Pressure 147/71 Pulse Oximetry 95 Oxygen Delivery Me thod Nasal Cannula Oxygen Flow Rate Fraction of Inspir ed Oxygen 2 Hydration adequate: Yes Nausea and vomiting: No Pain level: 1 Mental status: Baseline
[2025-05-04 15:10] LABS: Hematocrit 26.2 % (37-53); Hemoglobin 8.60 g/dL (11.27-16.99); Mean Corpuscular HGB Conc 32.8 g/dL (30-55); Mean Corpuscular Hemoglobin 29.4 pg (27-33); Mean Corpuscular Volume 89.4 fl (82-101); Nucleated Red Blood Cells % 0 %; Platelet Count 161 10^3/cmm (157-399); Red Blood Count 2.93 10^6/uL (3.85-5.65); White Blood Count 13.08 10^3/uL (3.29-11.43)
--- NOTE | 2025-05-04 16:48 | PC.OT ---
OT EVALUATION ATTEMPTED. PER NURSING, PATIENT HAD AN EEG THIS AFTERNOON AND MAY HAVE A BM AT ANY TIME. REQUEST TO HOLD
[2025-05-04 21:40] LABS: Hematocrit 23.5 % (37-53); Hemoglobin 7.60 g/dL (11.27-16.99); Mean Corpuscular HGB Conc 32.3 g/dL (30-55); Mean Corpuscular Hemoglobin 28.4 pg (27-33); Mean Corpuscular Volume 87.7 fl (82-101); Nucleated Red Blood Cells % 0.2 %; Platelet Count 156 10^3/cmm (157-399); Red Blood Count 2.68 10^6/uL (3.85-5.65); White Blood Count 15.65 10^3/uL (3.29-11.43)
--- NOTE | 2025-05-04 22:45 | USCV_ITS ---
Ronnie Shell Age: 84 Gender: M : 1940 Exam Date: 05/04/2025 02:47 Ordering Phys: Trace Medina MD Technologist: REJI Exam Location: [facility] [place] Indication: pre-syncope, SOB, N+V BP: 134 / 64 HR: 83 Rhythm: Sinus Technical Quality: Adequate MEASUREMENTS (Male / Female) Normal Values 2D ECHO LV Diastolic Diameter PLAX 3.7 cm 4.2 - 5.9 / 3.9 - 5.3 cm IVS Diastolic Thickness 1.8 cm 0.6 - 1.0 / 0.6 - 0.9 cm IVS Systolic Thickness 1.9 cm LVPW Diastolic Thickness 1.8 cm 0.6 - 1.0 / 0.6 - 0.9 cm LVPW Systolic Thickness 2.5 cm LVOT Diameter 1.8 cm LV Ejection Fraction 2D Teich 60.4 % LV Ejection Fraction MOD 4C 54.2 % LV Ejection Fraction MOD 2C 63.1 % LV Ejection Fraction 2C AL 68.2 % LA Diameter 3.9 cm Aorta at Sinotubular Diameter 3.3 cm IVC Diameter 1.3 cm M-MODE LA Ao Ratio MM 1.3 AV Cusp Separation MM 2.0 cm DOPPLER AV Peak Velocity 165.0 cm/s LVOT Peak Velocity 136.0 cm/s AV Area Cont Eq vti 2.0 cm squared AV Area Cont Eq pk 2.1 cm squared MV Peak Velocity 121.0 cm/s MV Area PHT 4.6 cm squared Mitral E to A Ratio 0.6 TV Peak E Velocity 57.0 cm/s PV Peak Velocity 96.0 cm/s FINDINGS Left Ventricle Normal left ventricular size, systolic function and wall thickness, with no regional wall motion abnormalities. Left ventricular ejection fraction is estimated at 60%. Grade I/IV diastolic dysfunction (abnormal relaxation filling pattern), normal to mildly elevated filling pressures. Right Ventricle Normal right ventricular size and systolic function. Right Atrium Normal right atrial size. Left Atrium Normal left atrial size. IA Septum Normal appearance of the interatrial septum. Mitral Valve Normal mitral valve structure. No mitral valve stenosis or regurgitation. Aortic Valve Moderate aortic valve calcification. No aortic valve stenosis. Trace aortic valve regurgitation. Tricuspid Valve Normal tricuspid valve structure. No tricuspid valve stenosis or regurgitation. Normal pulmonary pressure. Pulmonic Valve Normal pulmonic valve structure. No pulmonic valve stenosis or regurgitation. Pericardium No pericardial effusion. Aorta Normal diameter of the aortic root and ascending thoracic aorta. IVC Normal IVC diameter. CONCLUSIONS Normal left ventricular size, systolic function and wall thickness, with no regional wall motion abnormalities. Left ventricular ejection fraction is estimated at 60%. Grade I/IV diastolic dysfunction (abnormal relaxation filling pattern), normal to mildly elevated filling pressures. There is no pericardial effusion. No significant valvular abnormalities. Right atrial pressure is around 5 mm of mercury. Ximena Vásquez MD (Electronically Signed) Final Date: 04 May 2025 20:42 S
--- NOTE | 2025-05-04 22:45 | USCV_ITS ---
Ronnie Shell Age: 84 Gender: M : 1940 Exam Date: 05/04/2025 02:17 Ordering Phys: Traec Medina MD Technologist: REJI [place] [facility] [place]ication: pre-syncope, SOB, N+V Risk Factors: unknown Previous Vascular Surgery: unknown Right Brachial BP: 134 / 64 Left Brachial BP: / Right Left Velocity (cm/s) Spectral Plaque Velocity (cm/s) Spectral Plaque Syst/Diast Broadening Syst/Diast Broadening 89.30/ 13.50 Min Hetro Prox CCA 133.30/ 12.40 Min Hetro 108.00/11.20 Min Hetro Mid CCA 66.60 / 10.80 Min Hetro 70.90/ 14.60 Mod Larry Distal CCA 75.30 / 8.60 Min Larry 76.00/ 21.60 Mod Larry Prox ICA 75.30 / 16.30 Mod Larry 97.80/ 28.10 Min Larry Mid ICA 70.90 / 22.80 Min Larry 92.90/ 36.60 Min Hetro Distal ICA 86.80 / 28.00 Min Hetro 150.10 Min Hetro ECA 79.70 Min Hetro 1.40 ICA/CCA 1.20 Antegrade Vertebral Antegrade 48.90/ 9.30 cm/s 47.60/ 14.60 cm/s Tri Subclavian Tri 105.1 96.00 0 CONCLUSIONS Right ICA stenosis <50%. Moderate atheromatous plaque right carotid bulb/ICA. Left ICA stenosis <50%. Moderate atheromatous plaque left carotid bulb/ICA. Intimal thickening in the common carotid arteries and internal carotid arteries bilaterally. Normal antegrade Doppler flow noted in the right vertebral artery. Normal antegrade Doppler flow noted in the left vertebral artery. Supa Gaitan MD (Electronically Signed) Final Date: 04 May 2025 12:04 S
[2025-05-05] VITALS (22 sets, daily range): BP systolic 118–147; BP diastolic 54–71; PULSE 76–97; RESP 13–22; TEMP 36.4–37.5; O2SAT 95–100
[2025-05-05] MEDS: HYDROcodone-acetaminophen 5-325 mg Tablet 1 TAB PO (01:50)
[2025-05-05] MEDS: alum-mag-hydroxide-sime 30 mL UDC 15 ML PO ×4 (04:37→22:41)
[2025-05-05 05:06] LABS: Hematocrit 25.1 % (37-53); Hemoglobin 8.40 g/dL (11.27-16.99); Mean Corpuscular HGB Conc 33.5 g/dL (30-55); Mean Corpuscular Hemoglobin 29.6 pg (27-33); Mean Corpuscular Volume 88.4 fl (82-101); Nucleated Red Blood Cells % 0.4 %; Platelet Count 140 10^3/cmm (157-399); Red Blood Count 2.84 10^6/uL (3.85-5.65); White Blood Count 14.21 10^3/uL (3.29-11.43)
[2025-05-05 05:31] LABS: Alanine Aminotransferase 12 U/L (0-41); Albumin Level 3.4 g/dL (3.5-5.2); Alkaline Phosphatase 31 U/L (40-130); Anion Gap 14.9 (5-19); Aspartate Amino Transferase 20 U/L (0-40); Blood Urea Nitrogen 64 mg/dL (8-23); Calcium 8.9 mg/dL (8.5-10.5); Carbon Dioxide 23 mmol/L (22-29); Chloride 108 mmol/L (98-107); Globulin 1.4 g/dL (1.3-4.6); Glucose 221 mg/dL (65-115); Osmolality Calculated 319 mOsm/kg (285-295); Potassium 3.9 mmol/L (3.5-5.1); Sodium 142 mmol/L (136-145); Total Protein 4.8 g/dL (6.6-8.7)
--- NOTE | 2025-05-05 08:51 | P.PN_ITS ---
Subjective 2 Subjective: 1 small dark bowel movement today. Hemo globin stable at 8.1. Medications: Reviewed: Yes Vitals/I&O/Wt Last Vital Signs Temp 98.5 F 05/05/25 04:51 Pulse 91 05/05/25 06:00 Resp 16 05/05/25 06:00 BP 137/64 05/05/25 06:00 Pulse Ox 96 05/05/25 06:00 O2 Del Method Room Air 05/04/25 16:00 05/04/25 05/05/25 05/05/25 22:59 06:59 14:59 Intake Total 1409.334 / 2946.001 350 / 3296.001 Output Total 1000 / 2250 800 / 3050 Balance 409.334 / 696.001 -450 / 246.001 Weight last 48 hrs Weight 84.323 kg Weight 86 kg Weight 86 kg Weight 87.317 kg Weight 87.09 kg Physical Exam 2 Narrative: General: No acute distress, AO x3 HEENT: PERRLA, pupils bilaterally equal and reactive, pallors not present Chest: Normal vesicular breath sounds, no added sounds, equal good air entry bilaterally CVS: S1-S2 regular, no murmurs, no tachycardia, no gallops, no rubs Abdomen: Soft, nontender, no organomegaly, bowel sounds present Neuro: No focal deficits, no facial deformity, AO x3, power 5/5 in all limbs Data 05/05/25 12:06 05/05/25 04:35 A&P Assessment and plan 1. Acute upper GI bleed: 2. Pre-syncope: 3. Hypertension: 4. CAD (coronary artery disease): 5. Diabetes mellitus: 6. NSAID long-term use: Plan: 2024 Patient admitted overnight with chief complaints of upper GI bleed presyncope hematemesis and melena at home. He is going for an endoscopy this afternoon to assess for source of bleeding. Reports a history of using aspirin 325 mg daily since his stenting several years ago. Will likely need to reduce this to a baby aspirin going forward. Also reports using NSAIDs over the past several weeks for back pain. Suspect patient to have gastric/duodenal ulcer related to this. Does not take any PPIs. Discontinue Pepcid IV Start Protonix 40 mg IV every 12 hours. Continue Carafate No clinical correlate of colitis on exam today. Abdominal soft, nontender. currently afebrile. Discontinue Cipro and Flagyl He is receiving 2 units of blood transfusion, recheck H&H posttransfusion. Continue insulin sliding scale. May 05, 2025 1 small black bowel movement today. Hemoglobin remaining stable at 8.1. Hemodynamically stable. Start clears today. Closely monitor for any recurrent bleeding.Upper GI endoscopy showing no abnormalities in the esophagus stomach or duodenum. No bleeding source was able to be identified. Colitis noted on CT abdomen and pelvis, patient states that he is aware of his colon and in the past week has seen some blood on the toilet paper which she thought was hemorrhoidal. WBC up to 14,000. Colitis was seen initially on CT abdomen. He was receiving ciprofloxacin and metronidazole which was discontinued yesterday, however with this interval history and leukocytosis, will place patient back on Zosyn. No diarrhea. Closely monitor hemoglobin every 8 hours. If remaining stable may be able to discharge in the next 24 hours PDMP PDMP Reviewed: Not Reviewed Attestations 2 Medical Necessity Statement*: Close monitoring of hemoglobin, starting clears, monitor for any rebleed, leukocytosis increasing, start antibiotics Coding Level of Care Code Acute Code for Chg Fwd Diagnoses Acute upper GI bleed K92.2 Pre-syncope R55 Hypertension I10 CAD (coronary artery disease) I25.10 Diabetes mellitus E11.9 NSAID long-term use Z79.1
[2025-05-05] MEDS: pantoprazole 40 mg SDV IVP ×2 (09:25→22:40)
[2025-05-05] MEDS: piperacillin-tazobactam 3.375 GM in sodium chloride 0.9% (plus) 50 ML IV ×2 (09:25→15:02)
--- NOTE | 2025-05-05 10:58 | PC.SOCIAL ---
IMM Updated Updated pt on IMM. No questions voiced. Provided pt a copy. Initialed, dated, & timed a copy & placed in chart.
--- NOTE | 2025-05-05 11:51 | P.PN_ITS ---
Subjective 2 Subjective: No hematochezia Hemoglobin 8 4 Vitals/I&O/Wt Last Vital Signs Temp 98.8 F 05/05/25 07:00 Pulse 91 05/05/25 10:00 Resp 16 05/05/25 10:00 BP 147/71 05/05/25 10:00 Pulse Ox 95 05/05/25 10:00 O2 Del Method Nasal Cannula 05/05/25 07:00 FiO2 2 05/05/25 07:00 05/04/25 05/05/25 05/05/25 22:59 06:59 14:59 Intake Total 1409.334 / 2946.001 350 / 3296.001 Output Total 1000 / 2250 800 / 3050 850 / 850 Balance 409.334 / 696.001 -450 / 246.001 -850 / -850 Weight last 48 hrs Weight 185 lb 14.4 oz Weight 189 lb 9.561 oz Weight 189 lb 9.561 oz Weight 192 lb 8 oz Weight 192 lb Physical Exam 2 Narrative: Chest: Unlabored breathing room air. No lymphadenopathy. Heart: Regular rate and rhythm. Abdomen: Soft, nontender, nondistended. No masses or lymphadenopathy. Data 05/05/25 04:35 05/05/25 04:35 A&P Assessment and plan 1. Melena: Plan: 84-year-old male with multiple comorbidities whom surgery was consulted for melena. No bleeding on EGD. If concerns for GI bleed persist recommend CTA to look for source. No hematochezia and therefore inpatient colonoscopy would be low yield. Rest of care per hospitalist. PDMP PDMP Reviewed: Not Reviewed Attestations 2 Medical Necessity Statement*: N/A Coding Level of Care Code 43341 Diagnoses Melena K92.1
[2025-05-05 12:12] LABS: Hematocrit 24.7 % (37-53); Hemoglobin 8.10 g/dL (11.27-16.99); Mean Corpuscular HGB Conc 32.8 g/dL (30-55); Mean Corpuscular Hemoglobin 29.2 pg (27-33); Mean Corpuscular Volume 89.2 fl (82-101); Nucleated Red Blood Cells % 0.5 %; Platelet Count 138 10^3/cmm (157-399); Red Blood Count 2.77 10^6/uL (3.85-5.65); White Blood Count 12.68 10^3/uL (3.29-11.43)
--- NOTE | 2025-05-05 17:49 | PC.NURSE ---
Report given to Maral LOZANO. Patient without distress two black bms with last being small smear. Next cbc at 8pm, orders check hemoglobin q 8 hours and to give 1 unit if hemoglobin for less than 8
[2025-05-05 20:13] LABS: Hematocrit 22.5 % (37-53); Hemoglobin 7.50 g/dL (11.27-16.99); Mean Corpuscular HGB Conc 33.3 g/dL (30-55); Mean Corpuscular Hemoglobin 29.3 pg (27-33); Mean Corpuscular Volume 87.9 fl (82-101); Nucleated Red Blood Cells % 0.6 %; Platelet Count 136 10^3/cmm (157-399); Red Blood Count 2.56 10^6/uL (3.85-5.65); White Blood Count 10.62 10^3/uL (3.29-11.43)
--- NOTE | 2025-05-05 22:07 | ECG_ITS ---
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 Measurements Intervals [place] Rate: 81 P: 40 OK: 163 QRS: 33 QRSD: 100 T: 4 QT: 422 QTc: 491 Interpretive Statements SINUS RHYTHM NONSPECIFIC T-WAVE ABNORMALITY Compared to ECG 05/04/2025 04:13:13 No significant changes Electronically Signed On 05-06-2025 08:30:14 DUMP TRUCK DRIVER [address] by Carmen Gutierrez M.D. [email or web address]
[2025-05-05] MEDS: FUROsemide 10 mg/mL SDV 4mL 40 MG IVP (22:41)
[2025-05-05 22:56] LABS: Troponin(5th) Baseline 19 ng/L (0-15)
--- NOTE | 2025-05-05 23:15 | CTR_ITS ---
PROCEDURE INFORMATION: Exam: CT Abdomen And Pelvis With Contrast Exam date and time: 05/05/2025 11:33 PM Age: 84 years old Clinical indication: Abdominal pain; Generalized; Abd pain with melena; Additional info: Tarry stool with abdomen pain, look for any abnormalities, or a source of bleeding TECHNIQUE: Imaging protocol: Computed tomography of the abdomen and pelvis with contrast. Radiation optimization: All CT scans at this facility use at least one of these dose optimization techniques: automated exposure control; mA and/or kV adjustment per patient size (includes targeted exams where dose is matched to clinical indication); or iterative reconstruction. Contrast material: OMNI 350; Contrast volume: 100 ml; Contrast route: INTRAVENOUS (IV); COMPARISON: CT chest abdpel w/*[id number] 05/03/2025 8:39 PM RADIATION DOSE METRICS: Total DLP (mGy-cm): 679.24 FINDINGS: Esophagus: The imaged esophagus is within normal limits. Liver: Normal. No mass. Gallbladder and biliary ducts: The gallbladder is surgically absent. No intra or extrahepatic bile duct dilatation is noted. Pancreas: Normal. No ductal dilation. Spleen: Normal. No splenomegaly. Adrenal glands: Normal. No mass. Kidneys and ureters: Normal. No hydronephrosis. Stomach and bowel: The stomach is normal. Appendix: The appendix is normal. Intraperitoneal space: Unremarkable. No free air. No significant fluid collection. Vasculature: Moderate atherosclerosis of the abdominal aorta and major vessels is branching present. Lymph nodes: Unremarkable. No enlarged lymph nodes. Urinary bladder: Indeterminate asymmetric mucosal thickening of the urinary bladder base measuring up to 1.5 cm in depth (series 6, image 40) Reproductive: Unremarkable as visualized. Bones/joints: Unremarkable. No acute fracture. Soft tissues: Unremarkable. Other findings: Very subtle fat stranding at the of the level of the antrum/D1 duodenal segment. CT/CT abdomen pelvis w con* [id number] IMPRESSION: 1. Very subtle perienteric fat stranding of the level of the duodenal bulb/antrum. Correlate for history of peptic ulcer disease. 2. Indeterminate asymmetric urinary bladder base mucosal thickening. Median hypertrophy of the prostate is considered less likely given overall size. Correlate with urinalysis/cytology. Findings can be further characterized with nonemergent CT urography. Correlation with PSA could be considered. 3. Otherwise, no acute process in the abdomen or pelvis to explain the patient's symptoms.
[2025-05-05] MEDS: iohexol 350 mg/mL 500 mL Btl (per mL) IV (23:43)
[2025-05-06] VITALS (39 sets, daily range): BP systolic 102–147; BP diastolic 46–66; PULSE 65–95; RESP 12–64; TEMP 36.6–37.2; O2SAT 89–100
[2025-05-06] LABS: Hematocrit 23.1 % (37-53); Hemoglobin 7.70 g/dL (11.27-16.99); Mean Corpuscular HGB Conc 33.3 g/dL (30-55); Mean Corpuscular Hemoglobin 29.3 pg (27-33); Mean Corpuscular Volume 87.8 fl (82-101); Nucleated Red Blood Cells % 0.9 %; Platelet Count 135 10^3/cmm (157-399); Red Blood Count 2.63 10^6/uL (3.85-5.65); White Blood Count 9.28 10^3/uL (3.29-11.43)
--- NOTE | 2025-05-06 00:15 | ECG_ITS ---
[facility] Date: 2025-05-06 Pat Name: Ronnie Shell Department: Room: 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 Measurements Intervals [place] Rate: 76 P: 60 TX: 168 QRS: 36 QRSD: 94 T: -10 QT: 420 QTc: 474 Interpretive Statements SINUS RHYTHM NONSPECIFIC T-WAVE ABNORMALITY Compared to ECG 05/05/2025 22:07:05 No significant changes Electronically Signed On 05-06-2025 13:04:22 DIVISION SERVICE MANAGER by Carmen Gutierrez M.D. [email or web address]
--- NOTE | 2025-05-06 00:26 | PC.NURSE ---
This nurse reached out to Dr. Medina to notify him of patient Hgb being 7.7. This nurse asked Provider if he still wanted to transfuse the PRBC Provider said lets hold PRBCs if he passes melena than transfuse. Provider also stated transfer patient to ICU.
[2025-05-06] MEDS: piperacillin-tazobactam 3.375 GM in sodium chloride 0.9% (plus) 50 ML IV ×4 (00:41→23:00)
--- NOTE | 2025-05-06 01:11 | PC.NURSE ---
Report called to Dilma LOZANO in ICU at this time.
[2025-05-06 01:12] LABS: Troponin 5 2HR 21.45 ng/L (0-15); Troponin 5 2HR Delta 2.45 ABS# (0-10)
--- NOTE | 2025-05-06 01:38 | W.PM.EVENTAC ---
Event Note Event Note: Patient had shortness of breath with chest pain and episode of fresh bleeding per rectum when he went to the bathroom and came back to his bed. Possible shortness of breath related to strain secondary to underlying severe anemia since patient has low hemoglobin, and exerting himself to go to the restroom and coming back caused tiredness and shortness of breath.? Event Notes Attestations Time Spent in Patient Care: Urgent EKG did not show any ST segment elevation Troponin trend but not significant Patient felt better after resting possible anemia induced shortness of breath and tiredness and fatigue Patient reported having fresh blood and also reported that he had history of hemorrhoids. He had episodes of mild fresh bleeding in the past but not very frequent. But had only melena and black tarry stools for which he arrived to the hospital this time. Urgent CT scan with abdomen and pelvis with contrast was done and patient was informed for the risk and benefits, and need of the studies to be done. And proceeded after discussing with the patient. The CT scan of abdomen and pelvis with contrast was not remarkable however it showed some duodenal fat stranding which could be related to his peptic ulcer disease. Stat CBC showed hemoglobin of 7.7. The patient has PRBC on standby. To monitor CBC in the morning and if needed to transfuse him accordingly. The transfusion to be done if the patient has another episode of fresh bleeding or drop in hemoglobin Patient to be transferred to ICU Continue telemetry monitoring Continue hemodynamics monitoring and regular CBC monitoring Maintain intake and output
--- NOTE | 2025-05-06 01:41 | PC.NURSE ---
Patient arrived to ICU from [facility] at 0120
[2025-05-06] MEDS: alum-mag-hydroxide-sime 30 mL UDC 15 ML PO ×4 (04:21→22:57)
--- NOTE | 2025-05-06 04:24 | ECG_ITS ---
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 Measurements Intervals [place] Rate: 73 P: 0 VA: 0 QRS: 25 QRSD: 102 T: -15 QT: 337 QTc: 373 Interpretive Statements SUPRAVENTRICULAR RHYTHM NONSPECIFIC T-WAVE ABNORMALITY ABNORMAL RHYTHM ECG Compared to ECG 05/06/2025 01:48:06 Supraventricular rhythm now present Sinus rhythm no longer present T-wave abnormality still present Electronically Signed On 05-06-2025 13:04:06 TELECOMMUNICATIONS SUPPORT by Carmen Gutierrez M.D. [email or web address]
[2025-05-06 04:50] LABS: Hematocrit 23.4 % (37-53); Hemoglobin 7.80 g/dL (11.27-16.99); Mean Corpuscular HGB Conc 33.3 g/dL (30-55); Mean Corpuscular Hemoglobin 29.4 pg (27-33); Mean Corpuscular Volume 88.3 fl (82-101); Nucleated Red Blood Cells % 0.5 %; Platelet Count 140 10^3/cmm (157-399); Red Blood Count 2.65 10^6/uL (3.85-5.65); White Blood Count 9.63 10^3/uL (3.29-11.43)
[2025-05-06 04:58] LABS: Troponin 5 6HR 18.36 ng/L (0-15)
[2025-05-06 04:59] LABS: Alanine Aminotransferase 15 U/L (0-41); Albumin Level 3.5 g/dL (3.5-5.2); Alkaline Phosphatase 33 U/L (40-130); Anion Gap 14.5 (5-19); Aspartate Amino Transferase 29 U/L (0-40); Blood Urea Nitrogen 29 mg/dL (8-23); Calcium 8.1 mg/dL (8.5-10.5); Carbon Dioxide 24 mmol/L (22-29); Chloride 108 mmol/L (98-107); Globulin 1.2 g/dL (1.3-4.6); Glucose 174 mg/dL (65-115); Osmolality Calculated 306 mOsm/kg (285-295); Potassium 3.5 mmol/L (3.5-5.1); Sodium 143 mmol/L (136-145); Total Protein 4.7 g/dL (6.6-8.7)
[2025-05-06 05:02] LABS: Troponin 5 6HR Delta -0.64 ng/L (0-12)
--- NOTE | 2025-05-06 05:02 | PC.NURSE ---
[facility] had previous orders to tranfuse unit of RBC if Hgb is below 8. Labs resulted back at 0400 with a hgb of 7.8. Dr. Medina notified and gave orders to hold the unit of RBC for now.
[2025-05-06] MEDS: pantoprazole 40 mg SDV IVP ×2 (10:44→22:58)
--- NOTE | 2025-05-06 11:48 | XRR_ITS ---
PROCEDURE INFORMATION: Exam: XR Chest Exam date and time: 05/06/2025 3:12 PM Age: 84 years old Clinical indication: Shortness of breath TECHNIQUE: Imaging protocol: Radiologic exam of the chest. Views: 1 view. COMPARISON: CT chest abdpel w/*[id number] 05/03/2025 8:39 PM FINDINGS: Lungs: Right upper lung zone granuloma. Mild centrilobular emphysematous changes are present. Pleural spaces: Unremarkable. No pleural effusion. No pneumothorax. Heart/Mediastinum: Unremarkable. No cardiomegaly. Vasculature: There are aortic arch calcifications. Bones/joints: Moderate degenerative disease of bilateral acromioclavicular joints. There are mild degenerative changes of the glenohumeral joint. XR/XR chest 1V portable [id number] IMPRESSION: 1. Mild emphysematous changes. 2. No acute cardiopulmonary process.
--- NOTE | 2025-05-06 15:01 | P.PN_ITS ---
Subjective 2 Subjective: Overnight patient had an episode of bright red blood per rectum when he went to the bathroom. Patient described it as a squirt of blood. Hemoglobin at 7.8 this morning. He has passed a small bowel movement with some clotted blood once since then. Reportedly patient was dizzy and short of breath during this episode. EKG and troponins were not significantly elevated at this time. Medications: Reviewed: Yes Vitals/I&O/Wt Last Vital Signs Temp 98.0 F 05/06/25 13:54 Pulse 78 05/06/25 14:15 Resp 23 H 05/06/25 14:15 BP 131/57 05/06/25 14:15 Pulse Ox 99 05/06/25 14:15 O2 Del Method Room Air 05/06/25 14:15 FiO2 2 05/05/25 07:00 05/06/25 05/06/25 05/06/25 06:59 14:59 22:59 Intake Total 290 / 1140 990 / 990 Output Total 1880 / 4430 300 / 300 Balance -1590 / -3290 690 / 690 Weight last 48 hrs Weight 88.451 kg Weight 84.323 kg Physical Exam 2 Narrative: General: No acute distress, AO x3 HEENT: PERRLA, pupils bilaterally equal and reactive, pallors not present Chest: Normal vesicular breath sounds, no added sounds, equal good air entry bilaterally CVS: S1-S2 regular, no murmurs, no tachycardia, no gallops, no rubs Abdomen: Soft, nontender, no organomegaly, bowel sounds present Neuro: No focal deficits, no facial deformity, AO x3, power 5/5 in all limbs Data 05/06/25 04:22 05/06/25 04:22 A&P Assessment and plan 1. Acute upper GI bleed: 2. Pre-syncope: 3. Hypertension: 4. CAD (coronary artery disease): 5. Diabetes mellitus: 6. NSAID long-term use: Plan: 2024 Patient admitted overnight with chief complaints of upper GI bleed presyncope hematemesis and melena at home. He is going for an endoscopy this afternoon to assess for source of bleeding. Reports a history of using aspirin 325 mg daily since his stenting several years ago. Will likely need to reduce this to a baby aspirin going forward. Also reports using NSAIDs over the past several weeks for back pain. Suspect patient to have gastric/duodenal ulcer related to this. Does not take any PPIs. Discontinue Pepcid IV Start Protonix 40 mg IV every 12 hours. Continue Carafate No clinical correlate of colitis on exam today. Abdominal soft, nontender. currently afebrile. Discontinue Cipro and Flagyl He is receiving 2 units of blood transfusion, recheck H&H posttransfusion. Continue insulin sliding scale. May 05, 2025 1 small black bowel movement today. Hemoglobin remaining stable at 8.1. Hemodynamically stable. Start clears today. Closely monitor for any recurrent bleeding.Upper GI endoscopy showing no abnormalities in the esophagus stomach or duodenum. No bleeding source was able to be identified. Colitis noted on CT abdomen and pelvis, patient states that he is aware of his colon and in the past week has seen some blood on the toilet paper which she thought was hemorrhoidal. WBC up to 14,000. Colitis was seen initially on CT abdomen. He was receiving ciprofloxacin and metronidazole which was discontinued yesterday, however with this interval history and leukocytosis, will place patient back on Zosyn. No diarrhea. Closely monitor hemoglobin every 8 hours. If remaining stable may be able to discharge in the next 24 hours May 06, 2025 Patient had an episode of bright red bleeding overnight. Hemoglobin at 7.[address] of the abdomen and pelvis was performed overnight in lieu of a CTA, no active bleeding was encountered. Leukocytosis has normalized now. Will transfuse 1 unit PRBC this morning with a.m. hemoglobin at 8.0 given symptomatic anemia. PDMP PDMP Reviewed: Not Reviewed Attestations 2 Medical Necessity Statement*: Closely monitor hemoglobin, episode of bright red bleeding last night. Coding Level of Care Code Acute Code for Chg Fwd Diagnoses Acute upper GI bleed K92.2 Pre-syncope R55 Hypertension I10 CAD (coronary artery disease) I25.10 Diabetes mellitus E11.9 NSAID long-term use Z79.1
[2025-05-06 17:15] LABS: Hematocrit 26.1 % (37-53); Hemoglobin 8.80 g/dL (11.27-16.99); Mean Corpuscular HGB Conc 33.7 g/dL (30-55); Mean Corpuscular Hemoglobin 29.5 pg (27-33); Mean Corpuscular Volume 87.6 fl (82-101); Nucleated Red Blood Cells % 0.5 %; Platelet Count 143 10^3/cmm (157-399); Red Blood Count 2.98 10^6/uL (3.85-5.65); White Blood Count 8.50 10^3/uL (3.29-11.43)
[2025-05-06 19:58] LABS: Hematocrit 26.6 % (37-53); Hemoglobin 8.80 g/dL (11.27-16.99); Mean Corpuscular HGB Conc 33.1 g/dL (30-55); Mean Corpuscular Hemoglobin 29.2 pg (27-33); Mean Corpuscular Volume 88.4 fl (82-101); Nucleated Red Blood Cells % 0.6 %; Platelet Count 145 10^3/cmm (157-399); Red Blood Count 3.01 10^6/uL (3.85-5.65); White Blood Count 7.27 10^3/uL (3.29-11.43)
[2025-05-07] VITALS (15 sets, daily range): BP systolic 122–148; BP diastolic 58–91; PULSE 57–83; RESP 14–35; O2SAT 96–98
[2025-05-07 05:14] LABS: Hematocrit 25.1 % (37-53); Hemoglobin 8.40 g/dL (11.27-16.99); Mean Corpuscular HGB Conc 33.5 g/dL (30-55); Mean Corpuscular Hemoglobin 29.8 pg (27-33); Mean Corpuscular Volume 89.0 fl (82-101); Nucleated Red Blood Cells % 0.3 %; Platelet Count 150 10^3/cmm (157-399); Red Blood Count 2.82 10^6/uL (3.85-5.65); White Blood Count 7.26 10^3/uL (3.29-11.43)
[2025-05-07 05:41] LABS: Alanine Aminotransferase 16 U/L (0-41); Albumin Level 3.3 g/dL (3.5-5.2); Alkaline Phosphatase 35 U/L (40-130); Anion Gap 12.1 (5-19); Aspartate Amino Transferase 26 U/L (0-40); Blood Urea Nitrogen 18 mg/dL (8-23); Calcium 8.0 mg/dL (8.5-10.5); Carbon Dioxide 22 mmol/L (22-29); Chloride 110 mmol/L (98-107); Globulin 1.4 g/dL (1.3-4.6); Glucose 182 mg/dL (65-115); Osmolality Calculated 299 mOsm/kg (285-295); Potassium 3.1 mmol/L (3.5-5.1); Sodium 141 mmol/L (136-145); Total Protein 4.7 g/dL (6.6-8.7)
[2025-05-07] MEDS: alum-mag-hydroxide-sime 30 mL UDC 15 ML PO ×2 (05:55→11:44)
[2025-05-07] MEDS: piperacillin-tazobactam 3.375 GM in sodium chloride 0.9% (plus) 50 ML IV (08:15)
[2025-05-07] MEDS: pantoprazole 40 mg SDV IVP (11:44)
[2025-05-07 11:48] LABS: Hematocrit 29.3 % (37-53); Hemoglobin 9.80 g/dL (11.27-16.99); Mean Corpuscular HGB Conc 33.4 g/dL (30-55); Mean Corpuscular Hemoglobin 30.1 pg (27-33); Mean Corpuscular Volume 89.9 fl (82-101); Nucleated Red Blood Cells % 0 %; Platelet Count 166 10^3/cmm (157-399); Red Blood Count 3.26 10^6/uL (3.85-5.65); White Blood Count 9.09 10^3/uL (3.29-11.43)
--- NOTE | 2025-05-07 12:49 | P.PN_ITS ---
Subjective 2 Subjective: No acute events overnight Denies any episodes of bleeding overnight Vitals/I&O/Wt Last Vital Signs Temp 98.5 F 05/06/25 16:00 Pulse 75 05/07/25 11:00 Resp 21 H 05/07/25 11:00 BP 148/72 05/07/25 11:00 Pulse Ox 97 05/07/25 08:00 O2 Del Method Room Air 05/06/25 16:00 FiO2 2 05/05/25 07:00 05/06/25 05/07/25 05/07/25 22:59 06:59 14:59 Intake Total 985 / 1975 530 / 2505 120 / 120 Output Total 1050 / 1800 Balance 985 / 1225 -520 / 705 120 / 120 Weight last 48 hrs Weight 195 lb Physical Exam 2 Narrative: Chest: Unlabored breathing room air. No lymphadenopathy. Heart: Regular rate and rhythm. Abdomen: Soft, nontender, nondistended. No masses or lymphadenopathy. Data 05/07/25 11:34 05/07/25 04:31 A&P Assessment and plan 1. Colitis: 2. Melena: Plan: 84-year-old male whom surgery was consulted initially for melena. No bleeding on EGD. There was a question of whether the patient developed hematochezia. CT scan did reveal possible consistent with a colitis. After 2 days of restarting antibiotics hematochezia subsided. Will defer colonoscopy at this time due to risk of iatrogenic perforation while being treated for colitis. He can follow-up as outpatient to consider additional endoscopy. Will sign off. PDMP PDMP Reviewed: Not Reviewed Attestations 2 Medical Necessity Statement*: N/A Coding Level of Care Code 64939 Diagnoses Colitis K52.9 Melena K92.1
--- NOTE | 2025-05-07 14:51 | PM.DCS ---
Discharge Providers Date of Admission: 05/03/25 21:18 Date of Discharge: May 07, 2025 Attending Provider at Admission: Trace Medina MD Attending Provider at Discharge: Beulah Sanford MD Primary Care Provider: Mel Be DO Diagnoses at Discharge Discharge Diagnosis 1. Colitis: 2. Melena: 3. Upper GI bleed: Reason for Visit Reason for Visit: SOB, GI Issues Hospital Course Hospital Course Ronnie Shell is a 84 year old male with PMH of cardiac stenting on aspirin and lipitor, HTN on anti HTN, DM on oral anti DM, came with h/o dizziness, weakness and sob.Patient sustained a fall about 2 weeks ago in the bathroom. And then again nearly passed out at home on the day of admission. Patient states he was getting tired and was just unable to get up from the toilet. He had been passing black tarry stool for the past 3 days. Presented to the emergency room in these circumstances and was found to have severe anemia with a hemoglobin of around 6. He had melena and was taken for upper GI endoscopy by general surgery. EGD findings included normal esophagus, normal stomach, no abnormalities in the duodenum. No obvious bleeding source was identified. He had a mild fever of 99.5 upon admission and some leukocytosis. CT of the abdomen and pelvis upon admission raised possibility of colitis and patient received IV antibiotics initially with Cipro Flagyl, then changed to piperacillin/tazobactam. This has been transition to oral Augmentin at the time of discharge. Due to concern for possible colitis and lack of hematochezia, colonoscopy was deferred to outpatient in the next 4 to 6 weeks per surgical recommendation. Patient had been taking NSAIDs over the past 2 weeks due to back pain related to his fall.. He had also been on aspirin 325 mg p.o. daily and Plavix 75 mg p.o. daily since 2003 when his last stents were placed. Since there was no current indication to continue dual antiplatelet therapy, aspirin 325 mg daily was discontinued. He has been recommended not to use any NSAIDs. Tylenol and tramadol were continued for pain management. He will continue Plavix 75 mg p.o. daily. During the hospital stay patient was noted to be normotensive off of his usual antihypertensive regimen. Noted to be bradycardic with heart rate at 57 therefore metoprolol remained on hold. Of his current antihypertensive triamterene hydrochlorothiazide was resumed at discharge. Patient is recommended to maintain a blood pressure and heart rate chart by checking twice a day every day. Instructed to resume metoprolol if his heart rate is over 100 at any time. Recommended to undergo a repeat hemoglobin check with his PCP on Thursday. Order was provided. He received multiple packed red blood cell transfusions during his hospital stay. At discharge his hemoglobin is at 9.8. Instructed to follow-up with PCP shortly after discharge to recheck hemoglobin and to resume antihypertensives if blood pressure allows. Physical Exam Narrative: General: No acute distress, AO x3 HEENT: PERRLA, pupils bilaterally equal and reactive, pallors not present Chest: Normal vesicular breath sounds, no added sounds, equal good air entry bilaterally CVS: S1-S2 regular, no murmurs, no tachycardia, no gallops, no rubs Abdomen: Soft, nontender, no organomegaly, bowel sounds present Neuro: No focal deficits, no facial deformity, AO x3, power 5/5 in all limbs Discharge Data Studies Completed and Pending Completed Studies During Hospitalization Category Date Time Status CT abdomen pelvis w con* [id number] Stat Cat Scan 05/05/25 23:[address] chest abdpel w/*[id number] Stat Cat Scan 05/03/25 19:[address] head wo con* [id number] Stat Cat Scan 05/03/25 22:17 Completed XR chest 1V portable [id number] Routine Exams 05/06/25 11:48 Completed XR chest 1V portable [id number] Stat Exams 05/03/25 19:17 Completed CV carotid duplex BI* [id number] Routine Ultrasound 05/04/25 22:45 Completed CV. echo complete* [id number] Routine Ultrasound 05/04/25 22:45 Completed Pending at discharge Category Date Time Status Blood Culture Stat Lab 05/03/25 19:37 Results C.Diff PCR (Lab) Routine Lab 05/05/25 07:26 Uncollected Leukocyte Reduced RBC Routine Lab 05/07/25 04:31 Results PRBC [Leukocyte Reduced RBC] Routine Lab 05/06/25 15:04 Ordered Type and Screen Routine Lab 05/07/25 04:31 Results Radiology Impressions Chest/Abdomen/Pelvis CT 05/03/25 19:50 IMPRESSION: No acute cardiopulmonary process demonstrated Findings of left lower lobe 4 mm noncalcified pulmonary nodule for follow-up IMPRESSION: Decompressed thickened colon correlate to exclude colitis no obstruction Head CT 05/03/25 22:17 IMPRESSION: 1. No acute intracranial process. 2. 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 Otherwise, no acute intracranial process. 3. Partially empty sella, which is nonspecific and may be normal variant or incidental/asymptomatic. Correlate for headache/visual disturbances. Follow-up nonemergent pituitary MRI can be obtained if clinically indicated. Abdomen/Pelvis CT 05/05/25 23:15 IMPRESSION: 1. Very subtle perienteric fat stranding of the level of the duodenal bulb/antrum. Correlate for history of peptic ulcer disease. 2. Indeterminate asymmetric urinary bladder base mucosal thickening. Median hypertrophy of the prostate is considered less likely given overall size. Correlate with urinalysis/cytology. Findings can be further characterized with nonemergent CT urography. Correlation with PSA could be considered. 3. Otherwise, no acute process in the abdomen or pelvis to explain the patient's symptoms. Chest X-Ray 05/06/25 11:48 IMPRESSION: 1. Mild emphysematous changes. 2. No acute cardiopulmonary process. Laboratory Results WBC 9.09 10^3/uL (3.29-11.43) 05/07/25 11:34 Corrected WBC Cancelled 05/06/25 17:00 RBC 3.26 10^6/uL (3.85-5.65) L 05/07/25 11:34 Hgb 9.80 g/dL (11.27-16.99) L 05/07/25 11:34 Hct 29.3 % (37-53) L 05/07/25 11:34 MCV 89.9 fl (82-101) 05/07/25 11:34 MCH 30.1 pg (27-33) 05/07/25 11:34 MCHC 33.4 g/dL (30-55) 05/07/25 11:34 RDW 14.1 % (12.1-15.1) 05/07/25 11:34 Plt Count 166 10^3/cmm (157-399) 05/07/25 11:34 MPV 11.1 fL (7.4-10.4) H 05/07/25 11:34 Gran % Cancelled 05/06/25 17:00 Neut % (Auto) 64.0 % 05/07/25 11:34 Lymph % (Auto) 25.5 % 05/07/25 11:34 [place] % (Auto) 8.0 % 05/07/25 11:34 Eos % (Auto) 1.8 % 05/07/25 11:34 Baso % (Auto) 0.3 % 05/07/25 11:34 Neut # (Auto) 5.81 10^3/uL (1.8-7.7) 05/07/25 11:34 Lymph # (Auto) 2.3 10^3/uL (0.8-4.8) 05/07/25 11:34 Pacific # (Auto) 0.7 10^3/uL (0.2-0.9) 05/07/25 11:34 Eos # (Auto) 0.2 10^3/uL (0.0-0.8) 05/07/25 11:34 Baso # (Auto) 0.0 10^3/uL (0.0-0.1) 05/07/25 11:34 Absolute Gran (auto) Cancelled 05/06/25 17:00 Nucleated RBC % (auto) 0 % 05/07/25 11:34 Nucleated RBCs # 0.0 /100WBC 05/07/25 11:34 PT 15.80 SECONDS (12.1-14.9) H 05/03/25 19:36 INR 1.18 (0.8-1.2) 05/03/25 19:36 APTT 21.3 SECONDS (23.9-36.7) L 05/03/25 19:36 Specimen Type Arterial 05/03/25 20:49 Sample Site Radial, right 05/03/25 20:49 ABG pH 7.45 (7.35-7.45) 05/03/25 20:49 ABG pCO2 33.2 mmHg (35-45) L 05/03/25 20:49 ABG pO2 78.3 mmHg (80.0-100.0) L 05/03/25 20:49 ABG HCO3 23.0 mmol/L (22-26) 05/03/25 20:49 ABG O2 Saturation 93.8 05/03/25 20:49 ABG Base Excess -0.8 mmol/L (-2.0-2.0) 05/03/25 20:49 Albert Test Pos 05/03/25 20:49 A-a O2 Gradient 3.9 mmHg (5-10) L 05/03/25 20:49 Hematocrit 25.9 % (42-52) L 05/03/25 20:49 Hgb O2 Saturation 92.3 % (95-100) L 05/03/25 20:49 Carboxyhemoglobin < 0.3 %THgb (0.4-20.1) L 05/03/25 20:49 Methemoglobin 1.6 % (0.4-1.5) H 05/03/25 20:49 Total Hemoglobin 8.4 g/dL (14-18) L 05/03/25 20:49 Sodium 140.0 mmol/L (131-143) 05/03/25 20:49 Potassium 3.9 mmol/L (3.5-5.0) 05/03/25 20:49 Glucose 311.0 mg/dL (70-115) H 05/03/25 20:49 Ionized Calcium 1.3 mmol/L (1.1-1.4) 05/03/25 20:49 O2 Delivery Device Room air 05/03/25 20:49 Graphics Manager ID [email or web address] 05/03/25 20:49 Sodium 141 mmol/L (136-145) 05/07/25 04:31 Potassium 3.1 mmol/L (3.5-5.1) L 05/07/25 04:31 Chloride 110 mmol/L (98-107) H 05/07/25 04:31 Carbon Dioxide 22 mmol/L (22-29) 05/07/25 04:31 Anion Gap 12.1 (5-19) 05/07/25 04:31 BUN 18 mg/dL (8-23) 05/07/25 04:31 Creatinine 0.7 mg/dL (0.7-1.2) 05/07/25 04:31 GFR Calculation Not Reportable 05/07/25 04:31 Glucose 182 mg/dL (65-115) H 05/07/25 04:31 POC Glucose 262 mg/dL (70-110) H 05/07/25 11:06 Estimat Average Glucose 169 05/03/25 19:36 Hemoglobin A1c 7.5 % (4.0-6.0) H 05/03/25 19:36 Calculated Osmolality 299 mOsm/kg (285-295) H 05/07/25 04:31 Lactic Acid 4.7 mmol/L (0.5-2.2) H* 05/04/25 02:07 Lactic Acid (Sepsis) 3.1 mmol/L (0.5-2.2) H 05/04/25 08:25 Calcium 8.0 mg/dL (8.5-10.5) L 05/07/25 04:31 Phosphorus 2.6 mg/dL (2.5-4.5) 05/03/25 21:16 Magnesium 2.1 mg/dL (1.7-2.3) 05/03/25 21:16 Total Bilirubin 0.4 mg/dL (0.15-1.2) 05/07/25 04:31 AST 26 U/L (0-40) 05/07/25 04:31 ALT 16 U/L (0-41) 05/07/25 04:31 Alkaline Phosphatase 35 U/L (40-130) L 05/07/25 04:31 Troponin T Baseline 19 ng/L (0-15) H 05/05/25 22:33 Troponin T 120 Minute 21.45 ng/L (0-15) H 05/06/25 00:46 Delta Troponin T 2.45 ABS# (0-10) 05/06/25 00:46 Troponin T Hi Sens 6Hr 18.36 ng/L (0-15) H 05/06/25 04:22 Troponin T Hi Sens 6Hr Delta -0.64 ng/L (0-12) L 05/06/25 04:22 NT-Pro-B Natriuret Pep 145 pg/mL (0-450) 05/03/25 19:36 Total Protein 4.7 g/dL (6.6-8.7) L 05/07/25 04:31 Albumin 3.3 g/dL (3.5-5.2) L 05/07/25 04:31 Globulin 1.4 g/dL (1.3-4.6) 05/07/25 04:31 TSH 1.13 uIU/mL (0.27-4.20) 05/03/25 21:16 Urine Color Yellow (Yellow) 05/03/25 20:25 Urine Appearance Clear (CLEAR) 05/03/25 20:25 Urine pH 5.5 (5-7) 05/03/25 20:25 Ur Specific [place] 1.031 (1.005-1.030) H 05/03/25 20:25 Urine Protein Negative (Negative) 05/03/25 20:25 Urine Glucose (UA) 3+ (Normal) H 05/03/25 20:25 Urine Ketones Trace (Negative) 05/03/25 20: Urine Blood Negative (Negative) 05/03/25 20: Urine Nitrate Negative (Negative) 05/03/25 20: Urine Bilirubin Negative (Negative) 05/03/25 20: Urine Urobilinogen 0.2 mg/dL (Negative) 05/03/25 20:25 Ur Leukocyte Esterase Negative (Negative) 05/03/25 20: Urine RBC 0-2 /hpf (0-2) 05/03/25 20:25 Urine WBC 0-5 /hpf (0-5) 05/03/25 20:25 Ur Squamous Epith Cells 0-5 /hpf (0-5) 05/03/25 20: Amorphous Sediment Not Reportable 05/03/25 20:25 Urine Bacteria None seen /hpf (NONE) 05/03/25 20: Hyaline Casts 0-4 /lpf H 05/03/25 20:25 Influenza A (PCR) Negative (Negative) 05/03/25 19:28 Influenza Type B (PCR) Negative (Negative) 05/03/25 19:28 RSV (PCR) Negative (Negative) 05/03/25 19:28 SARS-CoV-2 (PCR) Negative (Negative) 05/03/25 19:28 Blood Type A Positive 05/07/25 04:31 Rho(D) Type Rh positive 05/07/25 04:31 Antibody Screen Negative 05/07/25 04:31 Crossmatch See Detail 05/07/25 04:31 Vitals Last Vital Signs Temp 98.5 F 05/06/25 16:00 Pulse 83 05/07/25 14:00 Resp 20 H 05/07/25 14:00 BP 148/72 05/07/25 11:00 Pulse Ox 97 05/07/25 08:00 O2 Del Method Room Air 05/06/25 16:00 FiO2 2 05/05/25 07:00 Discharge Plan Discharge Patient Disposition: Home Condition: Stable Prescriptions: New acetaminophen 325 mg Tablet 650 mg PO Q6H PRN (Reason: Mild/Mod Pain Or Temp >/= 101) Qty: 0 0RF amoxicillin-pot clavulanate 875-125 mg tablet 1 tab PO BID 5 Days Qty: 10 0RF ferrous sulfate 325 mg (65 mg iron) tablet 325 mg PO BID 30 Days Qty: 60 0RF sucralfate [Carafate] 1 gram tablet 1 g PO BID 28 Days Qty: 56 0RF Continued atorvastatin 40 mg tablet 40 mg PO QPM clopidogrel 75 mg tablet 75 mg PO DAILY tramadol 50 mg tablet 100 mg PO TID PRN (Reason: Pain) triamterene-hydrochlorothiazid 37.5-25 mg capsule 1 cap PO DAILY levothyroxine [Synthroid] 25 mcg tablet 25 mcg PO QAM mupirocin 2 % ointment See Rx Instructions .ROUTE .COMPLEX Rx Instructions: APPLY OINTMENT TOPICALLY TO AFFECTED AREA TWICE DAILY UNTIL HEALED. fenofibrate 160 mg tablet 160 mg PO DAILY Trijardy XR 25-5-1,000 mg tablet, IR - ER, biphasic 24hr 1 tab PO DAILY glucosamine sulfate [Glucosamine] 500 mg Tablet 500 mg PO BID Rx Instructions: administer with meals cinnamon bark [Cinnamon] 500 mg Capsule 500 mg PO DAILY Held metoprolol succinate 100 mg tablet extended release 24 hr 100 mg PO DAILY Hold Instructions: Resume on 04/26/25. amlodipine 10 mg tablet 10 mg PO DAILY Hold Instructions: Resume on 04/26/25. please resume after follow up with your PCP Discontinued losartan 100 mg tablet 100 mg PO DAILY aspirin 325 mg Tablet 325 mg PO DAILY ascorbic acid (vitamin C) [Vitamin C] 500 mg Tablet 500 mg PO BID Discharge Order = DC NOW: Discharge Order (Routine); Ordered 05/07/25 Ordered By: Beulah Sanford Other Ambulatory Orders: Complete Blood Count w/Auto (Routine) Timeframe: 20250510 Location: Determined by Patient Ordered By: Beulah Sanford Referrals: [facility] [Outside] Referral Note: UGI bleed, s/p UGIE without obvious source, neds colonoscopy and possible capsule endoscopy Jose Iniguez MD [Physician, General Surgery] Referral Note: colonoscopy , UGI bleed Mel Be DO [Primary Care Provider, Family Practice] - 4-7 days Referral Note: hospital discharge follow up for UGI bleed, colitis Discharge Diet: Advance as tolerated and GI Soft Discharge Activity: Increase activity as tolerated Patient Instructions: Iron Supplements (By mouth), Sucralfate (By mouth), Amoxicillin/Clavulanate Potassium (By mouth), Gastrointestinal Bleeding (GEN), Ulcerative Colitis (DC), GI Post Discharge Instructions w/ Anesthesia, Opioid Safety, Patient Portal & Sadia Instructions Activity Restrictions/Additional Instructions: Please check your blood pressure and HR at home twice daily and take chart to PCP for review Discharge Attestations Time Spent in Discharge Care*: greater than 30 min Quality Metrics Clinical Quality Measures [ No reported AMI, CVA or VTE this stay] Coding Level of Care Code Acute Code for [facility] Fwd Diagnoses Colitis K52.9 Melena K92.1 Upper GI bleed K92.2
== END 2025-05-07 14:55 | disposition home or self-care (01) | DRG 379 ==
LOC: ER 21:20 → MEDSURG 21:37 → ICU 05-04 05:00 → MEDSURG 05-05 18:11 → ICU 05-06 01:21
PROVIDERS: Emergency Medicine; Student in an Organized Health Care Education/Training Program; Admitting Provider Student in an Organized Health Care Education/Training Program; Emergency Provider Physician Assistant; PCP Family Medicine; Visit Provider Student in an Organized Health Care Education/Training Program
PROC: 0DJ08ZZ Inspection of Upper Intestinal Tract, Via Natural or Artificial Opening Endoscopic (ICD-10-PCS; principal; 2025-05-04 13:20)
DX: K92.1 Melena (principal); K52.9 Noninfective gastroenteritis and colitis, unspecified; I25.10 Atherosclerotic heart disease of native coronary artery without angina pectoris; I10 Essential (primary) hypertension; E11.9 Type 2 diabetes mellitus without complications; D64.9 Anemia, unspecified; R00.1 Bradycardia, unspecified; E86.0 Dehydration; Z79.82 Long term (current) use of aspirin; Z79.84 Long term (current) use of oral hypoglycemic drugs; Z79.02 Long term (current) use of antithrombotics/antiplatelets; Z91.81 History of falling; Z95.5 Presence of coronary angioplasty implant and graft; Z87.891 Personal history of nicotine dependence
CPT/HCPCS: 36415; 36416; 36430; 36600; 43235; 70450; 71045; 71260; 74177; 80051; 80053; 81001; 82330; 82805; 82962; 83036; 83605; 83735; 83880; 84100; 84443; 84484; 85025; 85610; 85730; 86850; 86900; 86920; 87040; 87637; 93005; 93306; 93880; 96372; 97116; 97161; 97165; 99285; J0744; J1815; J1938; J2405; J2470; J2543; J2704; J3490; J7030; J7120; J9999; P9016

== ENCOUNTER → 2025-05-11 08:39 | Outpatient (BNVA) | payer MEDICARE, OTHER, SELFPAY | PROVIDERS: PCP Family Medicine; Visit Provider Student in an Organized Health Care Education/Training Program | DX: Z09 Encounter for follow-up examination after completed treatment for conditions other than malignant neoplasm (principal); K52.9 Noninfective gastroenteritis and colitis, unspecified | CPT/HCPCS: 99204; 99214 ==

== ENCOUNTER → 2025-06-13 10:20 | Outpatient (BNVA) | payer MEDICARE, OTHER, SELFPAY | PROVIDERS: PCP Family Medicine; Visit Provider Dermatology | DX: S00.81XA Abrasion of other part of head, initial encounter (principal); L57.8 Other skin changes due to chronic exposure to nonionizing radiation; Z08 Encounter for follow-up examination after completed treatment for malignant neoplasm; Z85.828 Personal history of other malignant neoplasm of skin; D48.5 Neoplasm of uncertain behavior of skin; L57.0 Actinic keratosis; X58.XXXA Exposure to other specified factors, initial encounter | CPT/HCPCS: 11102; 17000; 99213 ==